=== PATIENT | male | born 1950 | race Caucasian/White ===

== ENCOUNTER 2024-03-19 11:47 | Emergency (ER) | payer MEDICARE, BC, SELFPAY ==
[2024-03-19] VITALS (28 sets, daily range): BP systolic 93–129; BP diastolic 63–98; PULSE 78–98; TEMP 36.4; O2SAT 92–99; BMI 44.4
--- NOTE | 2024-03-19 12:17 | ED_ITS ---
HPI - General Adult General Date Seen: 03/19/24 Chief complaint: Shortness of Breath/Dyspnea Stated complaint: abnormal ekg sent from Urgent care Time Seen by Provider: 03/19/24 12:13 History of Present Illness HPI narrative: 73-year-old male who is referred from the Urgent Care to the ER today he apparently had an ?abnormal EKG? at the urgent care that showed, ?blockages. ? He has no history of heart or lung disease. He is a daily marijuana smoker but has never smoked tobacco cigarettes. He has a history of gout and takes lisinopril for hypertension. He did recently have a course of cephalexin for a infection on his right finger that is now healed. He notes for the past week or 2 he has had some dyspnea with exertion in particular when he goes up steps or when he carries the trash out to the curb. He also gets short of breath when he has to follow around his grandchildren. He has had dyspnea mostly with activity and exertion. No chest pain with exertion. He also notes orthopnea and he gets short of breath when he lays down flat in bed but feels better when sitting up. He does have some trace peripheral edema but that is stable and not worse than normal lately. He does not take any diuretics. He has no history of CHF. He was noted to have a heart murmur by the urgent care today but does not recall any previous mention of heart murmur on his prior checkups. Per [facility] care link notes from the urgent care.... Jerry comes in for evaluation of dyspnea, MENJIVAR. Symptoms started 03/14 with shortness of breath with exertion. No URI symptoms- cough, rhinorrhea, coryza, congestion. No fever, chills or malaise. Patient denies any cardiac or respiratory history. No chest pain or pressure. Does have new leg swelling Med list acetaminophen SR (TYLENOL ARTHRITIS) 650 mg extended release tablet Take 1 tablet by mouth every 8 hours if needed for Pain. Max acetaminophen dose: 4000mg in 24 hrs. ? 0 ? allopurinoL (ZYLOPRIM) 100 mg tablet TAKE 4 TABLETS(400 MG) BY MOUTH EVERY DAY 120 Tablet 0 ? cephalexin 500 mg capsule Take 1 Capsule (500 mg) by mouth three times daily. (Patient not taking: Reported on 03/19/2024) 21 Capsule 0 ? colchicine 0.6 mg tablet Take 2 tabs po as soon as possible for gout flare, repeat 1 tab po 1 hour later 15 tablet. 0 ? fluticasone (50 mcg per actuation) nasal solution (FLONASE) Inhale 1 Novelty to both nostrils once daily. 16 g 0 ? lisinopriL (PRINIVIL; ZESTRIL) 20 mg tablet TAKE 1 TABLET(20 MG) BY MOUTH EVERY DAY 90 Tablet 3 ? mupirocin 2% ointment Apply topically to affected ar ea(s) three times daily. 22 g 0 ? rosuvastatin (CRESTOR) 5 mg tablet TAKE 1 TABLET(5 MG) BY MOUTH AT BEDTIME General Appearance: Pleasant, alert, appropriate appearance for age. No acute distress Chest/Respiratory Exam: Normal chest wall and respirations. Clear to auscultation. Cardiovascular Exam: Regular rate and rhythm. S1, S2, grade III/IV systolic murmur. Psychiatric Exam: Alert and oriented, appropriate affect. Discussed that patient needs to present to the ED right away for further evaluation, patient's will transport to [place] ED for further workup. I reviewed the EKG from urgent care Normal sinus rhythm with fusion complexes or PVCs Rate: 93 NE: 146 QRS axis: Normal axis. No pathologic Q-waves. ST segment/T wave: No ST segment elevation or depression. Nonspecific T-wave inversions in leads 1, 2, aVL, V4, V5, V6. QTc: 447 Related Data Allergies Allergy/AdvReac Type Severity Reaction Status Date / Time No Known Drug Allergies Allergy Verified 03/19/24 11:55 [facility] Social History Smoking Status: Current every day smoker Do you use any of these nicotine containing products: None Second hand tobacco smoke exposure: Yes How often do you have a drink containing alcohol: never How often do you have six or more drinks on one occasion: Never AUDIT-C Alcohol total score: 0 Non-prescribed substance use: marijuana (any form) Non-prescribed substance use details: smokes daily service: No Exam Narrative: Exam Narrative: Constitutional: Appears well-developed and well-nourished. Alert. Conversant. Non toxic. HENT: Head: Atraumatic. Nose: Nose normal. Mouth/Throat: Oral mucosa is clear and moist. no trismus. Pharynx normal. Tonsils symmetric. No tonsillar enlargement, erythema, or exudate. Eyes: Conjunctivae normal. EOM normal. Pupils equal, round, and reactive to light. No scleral icterus. Neck: Normal range of motion. Neck supple. No tracheal deviation present. No JVD Cardiovascular: Normal rate, regular rhythm. No gallop. No friction rub. Crescendo systolic murmur heard. Symmetric radial and DBP artery pulses Pulmonary/Chest: Effort normal. No stridor. No respiratory distress. No wheezes. No rales. No rhonchi . No tenderness. Abdominal: Soft.No distension. No mass. No tenderness. No rebound. No guarding. Musculoskeletal: RUE: Normal range of motion. No tenderness. No deformity LUE: Normal range of motion. No tenderness. No deformity RLE: Normal range of motion. No edema. No tenderness. No deformity. He has a small 1 x 4 cm scab on the dorsum of his right foot 3rd toe which apparently is been present for a few weeks it is not healed yet. No surrounding erythema. No purulent drainage. No signs of gangrene. LLE: Normal range of motion. No edema. No tenderness. No deformity Neurological: Alert and oriented to person, place, and time. Normal strength. CN II-VII intact. No sensory deficit. GCS eye subscore is 4. GCS verbal subscore is 5. GCS motor subscore is 6. Normal coordination Skin: Skin is warm and dry. No rash noted. No pallor. Normal capillary refill. Psychiatric: Normal mood. Normal affect. Very polite. Const: Vital Signs, click to edit/add: Vital Signs - 24 hr 03/19/24 11:56 03/19/24 12:02 03/19/24 12:03 Temperature 97.6 F Pulse Rate 93 90 Blood Pressure 101/82 Pulse Oximetry 96 96 Oxygen Delivery Me thod Room Air 03/19/24 12:15 03/19/24 12:30 03/19/24 12:31 Temperature Pulse Rate 90 88 Blood Pressure 93/63 Pulse Oximetry 95 97 Oxygen Delivery Me thod 03/19/24 12:32 03/19/24 12:45 03/19/24 13:06 Temperature Pulse Rate 88 91 98 Blood Pressure Pulse Oximetry 99 96 96 Oxygen Delivery Me thod 03/19/24 13:16 03/19/24 13:17 03/19/24 13:30 Temperature Pulse Rate 91 92 91 Blood Pressure 110/82 Pulse Oximetry 95 95 96 Oxygen Delivery Me thod 03/19/24 13:33 03/19/24 13:45 03/19/24 14:00 Temperature Pulse Rate 94 92 92 Blood Pressure 129/98 H Pulse Oximetry 92 96 95 Oxygen Delivery Me thod 03/19/24 14:05 03/19/24 14:06 03/19/24 15:13 Temperature Pulse Rate 96 87 92 Blood Pressure Pulse Oximetry 95 95 94 Oxygen Delivery Me thod 03/19/24 15:15 03/19/24 15:30 03/19/24 15:45 Temperature Pulse Rate 89 92 93 Blood Pressure Pulse Oximetry 95 93 94 Oxygen Delivery Me thod 03/19/24 16:00 03/19/24 16:15 03/19/24 16:30 Temperature Pulse Rate 89 90 78 Blood Pressure Pulse Oximetry 95 94 97 Oxygen Delivery Me thod Course Course ED Course: Recheck-stable. Watching football. Reevaluation(s) Reevaluation #1: [id number]. Discussed follow-up troponin with the patient and his . We discussed my concern for CHF for possible aortic stenosis causing his murmur, dyspnea on exertion, abnormal troponin. We discussed that he will need further workup with echocardiogram. Would recommend hospitalization to help expedite that. Waiting senior radiation therapist back from [facility] [place]. Vital Signs Vital signs: Initial Vital Signs Respiratory Effort Spontaneous, Short of Breath 03/19/24 11:54 Respiratory Depth Normal 03/19/24 11:54 Vital Signs Temperature 97.6 F 03/19/24 11:56 Oxygen Delivery Method Room Air 03/19/24 11:56 Temperature 97.6 F 03/19/24 11:56 Pulse Rate 78 03/19/24 16:30 Blood Pressure 129/98 H 03/19/24 13:33 Pulse Oximetry 97 03/19/24 16:30 Oxygen Delivery Method Room Air 03/19/24 11:56 Medical Decision Making MDM Narrative Medical decision making narrative: This patient presents to the ER today for evaluation of dyspnea on exertion and orthopnea that has been ongoing for the past week (per patient) or maybe even 2 weeks or so (per his family). He was for to the ER today by urgent care because of a abnormal EKG with nonspecific T-wave changes in the inferior and lateral leads.. Differential was broad. No evidence of palpitations, syncope or other cardiac dysrhythmia. We considered possible ACS, however his only symptom is dyspnea on exertion orthopnea, no chest pain. EKG shows nonspecific changes but troponin is abnormal at 0.17. 2 hour delta troponin is essentially flat at 0.18. At this point no clear evidence for acute cardiac syndrome. He has already taken aspirin throughout and 25 mg a few hours prior to arrival so we did not administer extra aspirin here. He is not having any active symptoms to require nitrates. Discussed with Cardiology, Dr. Oliver, who recommends heparin for potential ACS given the positive troponin. Patient did have a little bit of bright red blood per rectum in his stool yesterday from a small hemorrhoid but no other recent GI bleeding. I think overall the risk of heparin is low enough that we will start here in the ER. Chest x-ray shows no evidence for pneumonia, pneumothorax, pulmonary edema, pleural effusion, rib fracture, cardiomegaly per my read. There was some problem with Radiology read as initially the report came across as a result of a hand x-ray. I called through to [facility] to have them correct the report. As of the time is the patient is still not directed. Mediastinum is normal on the x-ray. The patient has no ripping or tearing pain through to the back and has symmetric pulses on exam, no other acute neuro findings so I doubt aortic dissection. Risk of radiation and contrast exposure would outweigh the benefit of CT angiogram. We considered PE for this patient. Abnormal D-dimer prompted chest CT which is negative for PE. Also negative for pneumonia, pneumothorax, pulmonary edema, pleural effusion, or other cause for dyspnea. No wheezing or bronchospasm to suggest COPD/asthma. Suspicion is with his systolic murmur that he may have a critical aortic stenosis leading to his dyspnea on exertion and his abnormal troponin. Discussed with cardiology from [facility] [place], Dr. Cruz aviles. He would recommend transfer to [place] so the patient can have an echo tomorrow and evaluation of his valve if it is truly abnormal. If the echo is normal in the patient would need angiogram to look for coronary artery disease.\ Lab Data Labs: Lab Results 03/19/24 03/19/24 03/19/24 Range/Units 12:53 13:17 15:40 WBC 10.16 (4.50-11.00) K/uL RBC 4.67 (4.30-5.90) m/uL Hgb 14.2 (13.5-17.5) gm/dL Hct 44.7 (37.0-53.0) % MCV 96 (80-100) fL MCH 30 (26-34) pg MCHC 32 (32-36) gm/dL RDW Coeff of Mya 14.5 (11.5-15.5) % Plt Count 200 (140-440) K/uL Neut % (Auto) 54.5 (42.0-72.0) % Lymph % (Auto) 27.7 (20-44) % [place] % (Auto) 12.7 H (0.0-11.0) % Eos % (Auto) 4.0 (0.0-7.0) % Baso % (Auto) 0.9 (0.0-3.0) % Neut # (Auto) 5.54 (1.7-7.0) K/uL Lymph # (Auto) 2.81 (0.90-2.90) K/uL [place] # (Auto) 1.30 H (0.00-0.90) K/UL Eos # (Auto) 0.41 (0.00-0.50) K/uL Baso # (Auto) 0.09 (0.00-0.30) K/uL Abs Immat Gran (auto) 0.02 (0.00-0.30) K/uL Imm/Tot Granulo (auto) 0.2 % D-Dimer Quant (PE/DVT) 1.44 H (0.00-0.50) ug/ml Sodium 137 (135-149) mmol/L Potassium 4.6 (3.6-5.1) mmol/L Chloride 105 (96-114) mmol/L Carbon Dioxide 25 (20-32) mmol/L Anion Gap 7 (7-15) mEq/L BUN 20 (7-30) mg/dL Creatinine 1.2 (0.5-1.5) mg/dL Estimated Creat Clear 50.21 Estimated GFR 64 ml/min Glucose 105 (60-115) mg/dL Calcium 9.1 (8.4-10.6) mg/dL Troponin I 0.17 H* 0.18 H* (0.01-0.04) ng/mL NT-Pro-B Natriuret Pep 3620 pg/mL SARS-CoV-2 (PCR) Negative SARS-CoV-2 (Negative) Influenza Type A (PCR) Negative PCR FLU A (Negative) Influenza Type B (PCR) Negative PCR FLU B (Negative) RSV (PCR) Negative PCR RSV (Negative) Imaging Data CT scan - chest: Attestation: I have reviewed the pertinent imaging results. Radiologist's impression: IMPRESSION: No pulmonary embolism identified. Mild bronchial wall thickening especially centrally from maybe related to viral infection or other airways disease. Otherwise no acute cardiopulmonary process identified. Mild cardiomegaly. Discharge Plan Discharge Clinical Impression: Non-ST elevation [place] (NSTEMI), CHF (congestive heart failure) Patient Disposition: [facility]
--- NOTE | 2024-03-19 12:43 | CRLHL7_ITS ---
For Patients: As a result of the Cures Act, medical imaging exams and procedure reports are released immediately into your electronic medical record. You may view this report before your referring provider. If you have questions, please contact your health care provider. INDICATION: Smashed hand in door TECHNIQUE: Three views right hand FINDINGS/IMPRESSION: Normal alignment. No acute fracture or acute osseous abnormalities are visualized. Dictated by Cecile Brady MD @ 03/19/2024 1:57:03 PM (Electronically Signed)
[2024-03-19 13:02] LABS: Basophils Absolute Auto 0.09 K/uL (0.00-0.30); Basophils Percent Auto 0.9 % (0.0-3.0); Eosinophils Absolute Auto 0.41 K/uL (0.00-0.50); Hematocrit 44.7 % (37.0-53.0); Hemoglobin* 14.2 gm/dL (13.5-17.5); Immature Granulocytes Abs Auto 0.02 K/uL (0.00-0.30); Immature Granulocytes Pct Auto 0.2 %; Lymphocytes Absolute Auto 2.81 K/uL (0.90-2.90); Lymphocytes Percent Auto 27.7 % (20-44); Mean Corpuscular HGB Conc 32 gm/dL (32-36); Mean Corpuscular Hemoglobin 30 pg (26-34); Mean Corpuscular Volume 96 fL (80-100); Monocytes Percent Auto 12.7 % (0.0-11.0); Neutrophils Absolute Auto 5.54 K/uL (1.7-7.0); Neutrophils Percent Auto 54.5 % (42.0-72.0); Platelet Count* 200 K/uL (140-440); RDW Coefficient of Variation % 14.5 % (11.5-15.5); Red Blood Count 4.67 m/uL (4.30-5.90); White Blood Count* 10.16 K/uL (4.50-11.00)
[2024-03-19 13:09] LABS: Slide Review Reflex No
[2024-03-19 13:28] LABS: Chloride* 105 mmol/L (96-114); Potassium* 4.6 mmol/L (3.6-5.1); Sodium* 137 mmol/L (135-149)
[2024-03-19 13:30] LABS: Creatinine* 1.2 mg/dL (0.5-1.5); Est. Creatinine Clearance* 50.21; Estimated Glomerular Filt Rate 64 ml/min
[2024-03-19 13:31] LABS: Anion Gap 7 mEq/L (7-15); Blood Urea Nitrogen* 20 mg/dL (7-30); Calcium* 9.1 mg/dL (8.4-10.6); Carbon Dioxide* 25 mmol/L (20-32); Glucose* 105 mg/dL (60-115)
[2024-03-19 13:32] LABS: D Dimer Quantitative* 1.44 ug/ml (0.00-0.50)
[2024-03-19 13:42] LABS: NT Pro B Type NatriureticPept* 3620 pg/mL
[2024-03-19 13:45] LABS: Troponin I* 0.17 ng/mL (0.01-0.04)
[2024-03-19 14:04] LABS: PCR FLU A Negative PCR FLU A (Negative); PCR FLU B Negative PCR FLU B (Negative); PCR RSV Negative PCR RSV (Negative); SARS PCR* Negative SARS-CoV-2 (Negative)
--- NOTE | 2024-03-19 14:04 | CRLHL7_ITS ---
For Patients: As a result of the Century Cures Act, medical imaging exams and procedure reports are released immediately into your electronic medical record. You may view this report before your referring provider. If you have questions, please contact your health care provider. INDICATION: dyspnea, abnl D Dimer. TECHNIQUE: CT chest PE was acquired with 95 cc Isovue 370 IV contrast. COMPARISON: None. FINDINGS: Heart and vasculature: Contrast opacification of the pulmonary arterial tree is adequate. No sign of pulmonary embolism. Heart size is mildly enlarged. Coronary artery calcifications. Ascending aorta is borderline enlarged. Pulmonary artery are normal in caliber. Lungs and pleura: Mild central bronchial wall thickening. No pleural effusions, pleural thickening, or pneumothorax. Lymph nodes/mediastinum: No mediastinal, hilar, or axillary adenopathy. Chest wall: No masses. Upper abdomen: No acute or significant findings. Possible cirrhotic morphology of the liver. Bones: Unremarkable for age. IMPRESSION: No pulmonary embolism identified. Mild bronchial wall thickening especially centrally from maybe related to viral infection or other airways disease. Otherwise no acute cardiopulmonary process identified. Mild cardiomegaly. Please note that all CT scans at this facility use dose modulation, iterative reconstruction, and/or weight-based dosing when appropriate to reduce radiation dose to as low as reasonably achievable. Dictated by Mick Zuniga MD @ 03/19/2024 4:32:25 PM (Electronically Signed)
[2024-03-19 16:35] LABS: Troponin I* 0.18 ng/mL (0.01-0.04)
[2024-03-19] MEDS: HEPARIN 5,000 UNIT/0.5 ML INJ 4000 UNIT IVP (18:02)
[2024-03-19] MEDS: HEPARIN 25,000 UNIT/500 ML BAG 20 UNIT IV (18:03)
[2024-03-19 18:34] LABS: INR 1.02 (0.91-1.10)
[2024-03-19 18:35] LABS: Partial Thromboplastin Time* 40 Seconds (23-33)
== END 2024-03-19 19:16 | disposition short-term general hospital (02) ==
PROVIDERS: Emergency Provider Emergency Medicine; PCP Surgery
DX: I21.4 Non-ST elevation (NSTEMI) myocardial infarction (principal); I50.9 Heart failure, unspecified
CPT/HCPCS: 36415; 71046; 71275; 80048; 83880; 84484; 85025; 85379; 85610; 85730; 87631; 93005; 96374; 99284; 99285; J1644; Q9967

== ENCOUNTER 2024-03-19 19:04 | Outpatient (CLI) | payer MEDICARE, BC, SELFPAY | END 2024-03-19 19:05 | disposition home or self-care (01) | LOC: AMB 03-21 14:39 | PROVIDERS: PCP Surgery; Visit Provider Emergency Medicine Emergency Medical Services | DX: I21.4 Non-ST elevation (NSTEMI) myocardial infarction (principal); I50.9 Heart failure, unspecified; R53.1 Weakness | CPT/HCPCS: A0425; A0434 ==

== ENCOUNTER 2024-10-04 18:54 | Emergency (ER) | payer MEDICARE, BC, SELFPAY ==
--- OUTSIDE RECORDS SUMMARY | 2024-08-23 09:29 | XMS_ITS | Encounter Summary ---
Author Organization [facility] Address [address] [place] [address] Care Team Providers Care Submarine Diver Name Role Phone Unavailable Primary Care Provider Unavailabl e Reason for Referral * Outpatient (Routine) - Authorized Specialty Diagnoses / Procedures Referred By Carmella bellamy Referred To Contact Diagnoses Repair Aortic Valve Status Post Procedures Cardiac Rehab Program Leo Clay M.D. [address] [place] [phone] Phone: tel: fax: [facility] Referral ID Status Reason Start Date Expiration Date V isits Requested Visits Authorized [id number] Authorized 06/20/2024 09/20/2025 50 50 Reason for Visit * Outpatient (Routine) - Authorized Specialty Diagnoses / Procedures Referred By Carmella bellamy Referred To Contact Diagnoses Repair Aortic Valve Status Post Procedures Cardiac Rehab Program Leo Clay M.D. [address] [place] [phone] Phone: tel: fax: [facility] Region Referral ID Status Reason Start Date Expiration Date V isits Requested Visits Authorized [id number] Authorized 06/20/2024 09/20/2025 50 50 Encounter Details Date Type Department Care Team (Latest Contact Info) Description 08/23/2024 9:29 AM CDT - 08/23/2024 11:59 PM CDT Hospital Encounter Department of Cardiac Rehabilitation in [address] [place] [address] Leo Clay M.D. 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
--- OUTSIDE RECORDS SUMMARY | 2024-08-28 09:28 | XMS_ITS | Encounter Summary ---
Author Organization [facility] Address [address] [place] [address] Care Team Providers Care Petroleum Sampler Name Role Phone Unavailable Primary Care Provider Unavailabl e Reason for Referral * Outpatient (Routine) - Authorized Specialty Diagnoses / Procedures Referred By Carmella bellamy Referred To Contact Diagnoses Repair Aortic Valve Status Post Procedures Cardiac Rehab Program Leo Clay M.D. [address] [place] [phone] Phone: tel: fax: [facility] Referral ID Status Reason Start Date Expiration Date V isits Requested Visits Authorized [id number] Authorized 06/20/2024 09/20/2025 50 50 Reason for Visit * Outpatient (Routine) - Authorized Specialty Diagnoses / Procedures Referred By Carmella bellamy Referred To Contact Diagnoses Repair Aortic Valve Status Post Procedures Cardiac Rehab Program Leo Clay M.D. [address] [place] [phone] Phone: tel: fax: [facility] Region Referral ID Status Reason Start Date Expiration Date V isits Requested Visits Authorized [id number] Authorized 06/20/2024 09/20/2025 50 50 Encounter Details Date Type Department Care Team (Latest Contact Info) Description 08/28/2024 9:28 AM CDT - 08/28/2024 11:59 PM CDT Hospital Encounter Department of Cardiac Rehabilitation in [address] [place] [phone] Leo Clay M.D. 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
--- OUTSIDE RECORDS SUMMARY | 2024-08-30 09:28 | XMS_ITS | Encounter Summary ---
Author Organization [facility] Address [address] [place] [address] Care Team Providers Care Electrical Appliance Servicer Name Role Phone Unavailable Primary Care Provider Unavailabl e Reason for Referral * Outpatient (Routine) - Authorized Specialty Diagnoses / Procedures Referred By Carmella bellamy Referred To Contact Diagnoses Repair Aortic Valve Status Post Procedures Cardiac Rehab Program Leo Clay M.D. [address] [place] [phone] Phone: tel: fax: [facility] Referral ID Status Reason Start Date Expiration Date V isits Requested Visits Authorized [id number] Authorized 06/20/2024 09/20/2025 50 50 Reason for Visit * Outpatient (Routine) - Authorized Specialty Diagnoses / Procedures Referred By Carmella bellamy Referred To Contact Diagnoses Repair Aortic Valve Status Post Procedures Cardiac Rehab Program Leo Clay M.D. [address] [place] [phone] Phone: tel: fax: [facility] Region Referral ID Status Reason Start Date Expiration Date V isits Requested Visits Authorized [id number] Authorized 06/20/2024 09/20/2025 50 50 Encounter Details Date Type Department Care Team (Latest Contact Info) Description 08/30/2024 9:28 AM CDT - 08/30/2024 11:59 PM CDT Hospital Encounter Department of Cardiac Rehabilitation in [address] [place] [address] Leo Clay M.D. 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
--- OUTSIDE RECORDS SUMMARY | 2024-09-01 09:29 | XMS_ITS | Encounter Summary ---
Author Organization [facility] Address [address] [place] [address] Care Team Providers Care Wind Power Project Manager Name Role Phone Unavailable Primary Care Provider Unavailabl e Reason for Referral * Outpatient (Routine) - Authorized Specialty Diagnoses / Procedures Referred By Carmella bellamy Referred To Contact Diagnoses Repair Aortic Valve Status Post Procedures Cardiac Rehab Program Leo Clay M.D. [address] [place] [phone] Phone: tel: fax: [facility] Referral ID Status Reason Start Date Expiration Date V isits Requested Visits Authorized [id number] Authorized 06/20/2024 09/20/2025 50 50 Reason for Visit * Outpatient (Routine) - Authorized Specialty Diagnoses / Procedures Referred By Carmella bellamy Referred To Contact Diagnoses Repair Aortic Valve Status Post Procedures Cardiac Rehab Program Leo Clay M.D. [address] [place] [phone] Phone: tel: fax: [facility] Region Referral ID Status Reason Start Date Expiration Date V isits Requested Visits Authorized [id number] Authorized 06/20/2024 09/20/2025 50 50 Encounter Details Date Type Department Care Team (Latest Contact Info) Description 09/01/2024 9:29 AM CDT - 09/01/2024 11:59 PM CDT Hospital Encounter Department of Cardiac Rehabilitation in [address] [place] [address] Leo Clay M.D. 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
--- OUTSIDE RECORDS SUMMARY | 2024-09-04 09:28 | XMS_ITS | Encounter Summary ---
Author Organization [facility] Address [address] [place] [address] Care Team Providers Care Credentialer Name Role Phone Unavailable Primary Care Provider Unavailabl e Reason for Referral * Outpatient (Routine) - Authorized Specialty Diagnoses / Procedures Referred By Carmella bellamy Referred To Contact Diagnoses Repair Aortic Valve Status Post Procedures Cardiac Rehab Program Leo Clay M.D. [address] [place] [phone] Phone: tel: fax: [facility] Referral ID Status Reason Start Date Expiration Date V isits Requested Visits Authorized [id number] Authorized 06/20/2024 09/20/2025 50 50 Reason for Visit * Outpatient (Routine) - Authorized Specialty Diagnoses / Procedures Referred By Carmella bellamy Referred To Contact Diagnoses Repair Aortic Valve Status Post Procedures Cardiac Rehab Program Leo Clay M.D. [address] [place] [phone] Phone: tel: fax: [facility] Region Referral ID Status Reason Start Date Expiration Date V isits Requested Visits Authorized [id number] Authorized 06/20/2024 09/20/2025 50 50 Encounter Details Date Type Department Care Team (Latest Contact Info) Description 09/04/2024 9:28 AM CDT - 09/04/2024 11:59 PM CDT Hospital Encounter Department of Cardiac Rehabilitation in [address] [place] [address] Leo Clay M.D. 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
--- OUTSIDE RECORDS SUMMARY | 2024-09-11 09:27 | XMS_ITS | Encounter Summary ---
Author Organization [facility] Address [address] [place] [address] Care Team Providers Care Assistant Banquet Manager Name Role Phone Unavailable Primary Care Provider Unavailabl e Reason for Referral * Outpatient (Routine) - Authorized Specialty Diagnoses / Procedures Referred By Carmella bellamy Referred To Contact Diagnoses Repair Aortic Valve Status Post Procedures Cardiac Rehab Program Leo Clay M.D. [address] [place] [phone] Phone: tel: fax: [facility] Referral ID Status Reason Start Date Expiration Date V isits Requested Visits Authorized [id number] Authorized 06/20/2024 09/20/2025 50 50 Reason for Visit * Outpatient (Routine) - Authorized Specialty Diagnoses / Procedures Referred By Carmella bellamy Referred To Contact Diagnoses Repair Aortic Valve Status Post Procedures Cardiac Rehab Program Leo Clay M.D. [address] [place] [phone] Phone: tel: fax: [facility] Region Referral ID Status Reason Start Date Expiration Date V isits Requested Visits Authorized [id number] Authorized 06/20/2024 09/20/2025 50 50 Encounter Details Date Type Department Care Team (Latest Contact Info) Description 09/11/2024 9:27 AM CDT - 09/11/2024 11:59 PM CDT Hospital Encounter Department of Cardiac Rehabilitation in [address] [place] [address] Leo Clay M.D. 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
--- OUTSIDE RECORDS SUMMARY | 2024-09-13 09:29 | XMS_ITS | Encounter Summary ---
Author Organization [facility] Address [address] [place] [address] Care Team Providers Care Carving Machine Operator Name Role Phone Unavailable Primary Care Provider Unavailabl e Reason for Referral * Outpatient (Routine) - Authorized Specialty Diagnoses / Procedures Referred By Carmella bellamy Referred To Contact Diagnoses Repair Aortic Valve Status Post Procedures Cardiac Rehab Program Leo Clay M.D. [address] [place] [phone] Phone: tel: fax: [facility] Referral ID Status Reason Start Date Expiration Date V isits Requested Visits Authorized [id number] Authorized 06/20/2024 09/20/2025 50 50 Reason for Visit * Outpatient (Routine) - Authorized Specialty Diagnoses / Procedures Referred By Carmella bellamy Referred To Contact Diagnoses Repair Aortic Valve Status Post Procedures Cardiac Rehab Program Leo Clay M.D. [address] [place] [phone] Phone: tel: fax: [facility] Region Referral ID Status Reason Start Date Expiration Date V isits Requested Visits Authorized [id number] Authorized 06/20/2024 09/20/2025 50 50 Encounter Details Date Type Department Care Team (Latest Contact Info) Description 09/13/2024 9:29 AM CDT - 09/13/2024 11:59 PM CDT Hospital Encounter Department of Cardiac Rehabilitation in [address] [place] [address] Leo Clay M.D. 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
--- OUTSIDE RECORDS SUMMARY | 2024-09-15 09:26 | XMS_ITS | Encounter Summary ---
Author Organization [facility] Address [address] [place] [address] Care Team Providers Care Pre Sales Network Engineer Name Role Phone Unavailable Primary Care Provider Unavailabl e Reason for Referral * Outpatient (Routine) - Authorized Specialty Diagnoses / Procedures Referred By Carmella bellamy Referred To Contact Diagnoses Repair Aortic Valve Status Post Procedures Cardiac Rehab Program Leo Clay M.D. [address] [place] [phone] Phone: tel: fax: [facility] Referral ID Status Reason Start Date Expiration Date V isits Requested Visits Authorized [id number] Authorized 06/20/2024 09/20/2025 50 50 Reason for Visit * Outpatient (Routine) - Authorized Specialty Diagnoses / Procedures Referred By Carmella bellamy Referred To Contact Diagnoses Repair Aortic Valve Status Post Procedures Cardiac Rehab Program Leo Clay M.D. [address] [place] [phone] Phone: tel: fax: [facility] Region Referral ID Status Reason Start Date Expiration Date V isits Requested Visits Authorized [id number] Authorized 06/20/2024 09/20/2025 50 50 Encounter Details Date Type Department Care Team (Latest Contact Info) Description 09/15/2024 9:26 AM CDT - 09/15/2024 11:59 PM CDT Hospital Encounter Department of Cardiac Rehabilitation in [address] [place] [place] [address] Leo Clay M.D. 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
--- OUTSIDE RECORDS SUMMARY | 2024-09-18 09:30 | XMS_ITS | Encounter Summary ---
Author Organization [facility] Address [address] [place] [address] Care Team Providers Care Silk Screen Frame Assembler Name Role Phone Unavailable Primary Care Provider Unavailabl e Reason for Referral * Outpatient (Routine) - Authorized Specialty Diagnoses / Procedures Referred By Carmella bellamy Referred To Contact Diagnoses Repair Aortic Valve Status Post Procedures Cardiac Rehab Program Leo Clay M.D. [address] [place] [phone] Phone: tel: fax: [facility] Referral ID Status Reason Start Date Expiration Date V isits Requested Visits Authorized [id number] Authorized 06/20/2024 09/20/2025 50 50 Reason for Visit * Outpatient (Routine) - Authorized Specialty Diagnoses / Procedures Referred By Carmella bellamy Referred To Contact Diagnoses Repair Aortic Valve Status Post Procedures Cardiac Rehab Program Leo Clay M.D. [address] [place] [phone] Phone: tel: fax: [facility] Region Referral ID Status Reason Start Date Expiration Date V isits Requested Visits Authorized [id number] Authorized 06/20/2024 09/20/2025 50 50 Encounter Details Date Type Department Care Team (Latest Contact Info) Description 09/18/2024 9:30 AM CDT - 09/18/2024 11:59 PM CDT Hospital Encounter Department of Cardiac Rehabilitation in [address] [place] [address] Leo Clay M.D. 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
--- OUTSIDE RECORDS SUMMARY | 2024-09-20 09:26 | XMS_ITS | Encounter Summary ---
Author Organization [facility] Address [address] [place] [address] Care Team Providers Care Dianetic Counselor Name Role Phone Unavailable Primary Care Provider Unavailabl e Reason for Referral * Outpatient (Routine) - Authorized Specialty Diagnoses / Procedures Referred By Carmella bellamy Referred To Contact Diagnoses Repair Aortic Valve Status Post Procedures Cardiac Rehab Program Leo lCay M.D. [address] [place] [phone] Phone: tel: fax: [facility] Referral ID Status Reason Start Date Expiration Date V isits Requested Visits Authorized [id number] Authorized 06/20/2024 09/20/2025 50 50 Reason for Visit * Outpatient (Routine) - Authorized Specialty Diagnoses / Procedures Referred By Carmella bellamy Referred To Contact Diagnoses Repair Aortic Valve Status Post Procedures Cardiac Rehab Program Leo Clay M.D. [address] [place] [phone] Phone: tel: fax: [facility] Region Referral ID Status Reason Start Date Expiration Date V isits Requested Visits Authorized [id number] Authorized 06/20/2024 09/20/2025 50 50 Encounter Details Date Type Department Care Team (Latest Contact Info) Description 09/20/2024 9:26 AM CDT - 09/20/2024 11:59 PM CDT Hospital Encounter Department of Cardiac Rehabilitation in [address] [place] [address] Leo Clay M.D. 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
--- OUTSIDE RECORDS SUMMARY | 2024-09-27 09:30 | XMS_ITS | Encounter Summary ---
Author Organization [facility] Address [address] [place] [address] Care Team Providers Care Flight Test Data Acquisition Technician Name Role Phone Unavailable Primary Care Provider Unavailabl e Reason for Referral * Outpatient (Routine) - Authorized Specialty Diagnoses / Procedures Referred By Carmella bellamy Referred To Contact Diagnoses Repair Aortic Valve Status Post Procedures Cardiac Rehab Program Leo Clay M.D. [address] [place] [phone] Phone: tel: fax: [facility] Referral ID Status Reason Start Date Expiration Date V isits Requested Visits Authorized [id number] Authorized 06/20/2024 09/20/2025 50 50 Reason for Visit * Outpatient (Routine) - Authorized Specialty Diagnoses / Procedures Referred By Carmella bellamy Referred To Contact Diagnoses Repair Aortic Valve Status Post Procedures Cardiac Rehab Program Leo Clay M.D. [address] [place] [phone] Phone: tel: fax: [facility] Region Referral ID Status Reason Start Date Expiration Date V isits Requested Visits Authorized [id number] Authorized 06/20/2024 09/20/2025 50 50 Encounter Details Date Type Department Care Team (Latest Contact Info) Description 09/27/2024 9:30 AM CDT - 09/27/2024 11:59 PM CDT Hospital Encounter Department of Cardiac Rehabilitation in [address] [place] [address] Leo Clay M.D. 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 Were medications taken in the last 24 hours?: yes PRE WALK Assistive Device: None Height (cm): 168 Weight (kg): 116 BMI: 41.1 Resting Heart Rate: 74 Heart Rate Source: Telemetry Resp Rate: Resting SpO2: 97 Resting BP: 114/68Supplemental Oxygen used: Supplemental Oxygen Not Used Ean Dyspnea: 0 - Nothing at all Ean Fatigue: 0 - Nothing at all POST WALK Heart Rate: 120 Heart Rate Source: Telemetry SpO2: 96 BP: 162/64 Pain Score: 2-3/10 back pain Angina Scale: 0 - No Angina Claudication Scale: 1 - No Claudication Pain Ean Dyspnea: 2 - Slight Ean Fatigue: 2 - Slight Ean Rating of Perceived Exertion: 12 - Moderate Time of Test: 09:30 CDT Total Distance Walked (Feet): 1300 Total Distance Walked (Meters): 396.24 Total # of Times Stopped: 0 Time Stopped (Seconds): 0 Time Walked (Seconds): 360 CALCULATIONS Estimated MPH: 2.5 Estimated METs: 2.92 % of Predicted Distance: 98.37 documented in this encounter Miscellaneous Notes * Exercise Prescription - Merlene Weinberg CCRP, CEP - 09/27/2024 7:34 AM CDT EXERCISE PRESCRIPTION: Frequency Frequency of Sessions: Weekly Sessions per week: 3-5 Intensity Intensity: Work at a level that is comfortable but also challenging Rating of Perceived Exertion range (RPE): 11-15 Time Warm Up Minutes: 2-3 Aerobic exercise minutes: 30-45 Cool Down minutes: 2-3 Goal Minutes/session: 30+ Goal Minutes/Week: 150+ Type Rehab Aerobic Exercise Equipment: Treadmill; Arm Ergometer; Recumbent stepper (with or without arms); Walking Non-Rehab Aerobic Exercise Equipment: Walking Flexibility and Balance: Stretch major muscle groups daily Strength Training: Toribioisttawanna Number of strength sessions per week: 2-3 Reps: 10-15 Sets: 1-2 Hobbies/Activities: Avoid prolonged sitting Progression Progression: Use RPE to guide when to increase work level intensity and duration; Follow/match rehab intensity Congratulations, Rich! It has been a pleasure working with you. I am proud of the progress you havemade and I hope you are too. I hope you continue to see the importance and benefit of exercise and try to incorporate it into your daily life. Please do not hesitate to reach out if you have questions down the road. Elvira Ren Cardiac Rehab Therapist [phone] documented in this encounter Plan of Treatment Scheduled Orders Name Type Priority Associated Diagnoses Orde r Schedule Cardiac Rehab Program Card Rehab Routine Repair Aortic Valve Status Post Once for 1 Occurrences starting 09/27/2024 until 09/27/2024 documented as of this encounter Procedures Procedure Name Priority Date/Time Associated Diagnosis Comments 6 MINUTE WALK Routine 09/27/2024 9:30 AM CDT Repair Aortic Valve Status Post documented in this encounter Results * 6 MINUTE WALK (09/27/2024 9:30 AM CDT) Narrative Merlene Weinberg CCRP, CEP - 09/27/2024 9:30 AM CDT Merlene Weinberg CCRP, CEP 10/03/2024 9:01 AM Six Minute Walk Performed by: Merlene Weinberg CCRP, CEP Authorized by: Leo Clay M.D. Were medications taken in the last 24 hours?: yes PRE WALK Assistive Device: None Height (cm): 168 Weight (kg): 116 BMI: 41.1 Resting Heart Rate: 74 Heart Rate Source: Telemetry Resp Rate: Resting SpO2: 97 Resting BP: 114/68Supplemental Oxygen used: Supplemental Oxygen Not Used Ean Dyspnea: 0 - Nothing at all Ean Fatigue: 0 - Nothing at all POST WALK Heart Rate: 120 Heart Rate Source: Telemetry SpO2: 96 BP: 162/64 Pain Score: 2-3/10 back pain Angina Scale: 0 - No Angina Claudication Scale: 1 - No Claudication Pain Ean Dyspnea: 2 - Slight Ean Fatigue: 2 - Slight Ean Rating of Perceived Exertion: 12 - Moderate Time of Test: 09:30 CDT Total Distance Walked (Feet): 1300 Total Distance Walked (Meters): 396.24 Total # of Times Stopped: 0 Time Stopped (Seconds): 0 Time Walked (Seconds): 360 CALCULATIONS Estimated MPH: 2.5 Estimated METs: 2.92 % of Predicted Distance: 98.37 us Leo Clay M.D. CV STRESS PROCEDURES Final Result documented in this encounter Visit Diagnoses Diagnosis Repair Aortic Valve Status Post documented in this encounter Additional Health Concerns Assessment Noted Time PHQ-9 Depression Total Score: 2 09/28/19 25 12:20 PM CDT documented as of this encounter
--- OUTSIDE RECORDS SUMMARY | 2024-10-04 18:55 | XMS_ITS | Encounter Summary ---
Author Organization [facility] Address [address] [place] [address] Care Team Providers Care Music Pastor Name Role Phone Unavailable Primary Care Provider Unavailabl e Reason for Visit * Reason Onset Date Comments Scheduling 09/06/2024 Encounter Details Date Type Department Care Team (Late st Contact Info) Description 09/06/2024 Clinical Communication Department of Cardiac Rehabilitation in [address] [place] [id number] Merlene Weinberg, CCRP, [facility] [place] Scheduling Social History Tobacco Use Types Packs/Day Years Used Date Smoking Tobacco: Never Assessed Depression Answer Date Recor ded PHQ-9 Total Score (max 27) 3 06/29 Sex and Gender Information Value Date Recorded Sex Assigned at Not on file Legal Sex Male 10:26 AM [employer] DIRECT[employer] Gender Identity Not on file Sexual Orientation Not on file documented as of this encounter Plan of Treatment Not on file documented as of this encounter Visit Diagnoses Not on filedocumented in this encounter Additional Health Concerns Assessment Noted Time PHQ-9 Depression Total Score: 3 06/30/19 25 11:05 AM CDT documented as of this encounter
--- OUTSIDE RECORDS SUMMARY | 2024-10-04 18:56 | XMS_ITS | Clinical Summary ---
Author Organization [employer] [facility] Address [address] [place] [id number] Care Team Providers Care In Processing Instructor Name Role Phone Joey Jackson MD Primary Care Provider [phone] Nurses, Advanced Heart Failure Unavailable + Nicho Keys MD Unavailable [phone] Allergies Active Allergy Reactions Criticality Noted Date Comments Blood-Group Specific Substance Other - Describe In Comment Field 06/01/2024 Patient has a Nonspecifc antibody. Blood products may be delayed. Draw patient 24 hours prior to transfusion. For [employer] testing, draw one red top and two purple top tubes for all Type and Screen orders. Medications acetaminophen SR (TYLENOL ARTHRITIS) 650 mg extended release tablet Take 1 tablet by mouth every 8 hours if needed for Pain. Max acetaminophen dose: 4000mg in 24 hrs. 0 10/23/19 12 Active colchicine 0.6 mg tabletIndication s:Acute gout involving toe, unspecified cause, unspecified laterality Take 2 tabs po as soon as possible for gout flare, repeat 1 tab po 1 hour later 15 tablet. 08/05/19 22 Active allopurinoL (ZYLOPRIM) 100 mg tabletIndication s:Acute gout involving toe, unspecified cause, unspecified laterality TAKE 4 TABLETS(400 MG) BY MOUTH EVERY DAY 360 Tablet 2 03/20/20 24 Active fluticasone (50 mcg per actuation) nasal solution (FLONASE) Inhale 1 [place] into affected nostril(s) once daily if needed for Rhinitis. Active furosemide (LASIX) 20 mg tabletIndication s:Acute HFrEF (heart failure with reduced ejection fraction) (HC),Severe aortic stenosis Take 1 Tablet (20 mg) by mouth once daily if needed (Fluid retention). 04/24/19 25 Active clopidogreL (PLAVIX) 75 mg tabletIndication s:Coronary artery disease, unspecified vessel or lesion type, unspecified whether angina present, unspecified whether [place] or transplanted heart Take 1 Tablet (75 mg) by mouth once daily. 90 Tablet 1 04/25/19 25 Active rosuvastatin 20 mg tabletIndication s:Coronary artery disease, unspecified vessel or lesion type, unspecified whether angina present, unspecified whether [place] or transplanted heart Take 1 Tablet (20 mg) by mouth once daily. 90 Tablet 3 06/17/19 25 Active spironolactone 25 mg tabletIndication s:Systolic heart failure, unspecified HF chronicity (HC) Take 0.5 Tablets (12.5 mg) by mouth once daily in the morning. 45 Tablet 3 06/17/19 25 Active empagliflozin 10 mg tabletIndication s:Systolic heart failure, unspecified HF chronicity (HC) Take 1 Tablet (10 mg) by mouth once daily. 90 Tablet 3 07/05/19 25 Active aspirin 81 mg enteric coated tabletIndication s:HFrEF (heart failure with reduced ejection fraction) (HC) Take 1 Tablet (81 mg) by mouth once daily with a meal. 90 Tablet 3 07/21/19 25 Active valsartan 160 mg tabletIndication s:HFrEF (heart failure with reduced ejection fraction) (HC) Take 1 Tablet (160 mg) by mouth two times daily. 180 Tablet 1 08/15/19 25 Active metoprolol succinate 50 mg sustained-releas e tabletIndication s:HFrEF (heart failure with reduced ejection fraction) (HC) Take 1 Tablet (50 mg) by mouth two times daily. 180 Tablet 3 09/26/19 25 Active metoprolol succinate 50 mg sustained-releas e tabletIndication s:HFrEF (heart failure with reduced ejection fraction) (HC) Take 1/2 tablet in the morning and 1 tablet in the evening 135 Tablet 3 09/01/19 25 025 Discontin ued(*Medi cation adjustmen t) Active Problems Problem Noted Date Diagnosed Date Hypertensive heart and chron ic kidney disease with heart failure and stage 1 through stage 4 chronic kidney disease, or unspecified chronic kidney disease 03/30/2024 Body mass index (BMI) 40.0-44.9, adult Non-ST elevation [place] (NSTEMI) 03/19/2024 Acute HFrEF (heart failure with reduced ejection fraction) 03/19/2024 Severe aortic stenosis 03/19/2024 Chronic low back pain 03/19/2024 NIKKI 08/25/2017 AHI-49 09/09/2017 Polyarticular arthritis 07/31/2017 Spinal stenosis of lumbar re gion with neurogenic claudication 06/28/2017 Overview (06/28/2017): Right leg symptoms MRI: 06/24/17 IMPRESSION: Straightening of the lumbar spine, grade 1 anterolisthesis at L5-S1 and severe multilevel degenerative disc disease, which in combination with congenitally short pedicles results in severe multilevel central canal stenosis accompanied by moderate to severe neural foraminal stenoses as detailed above. To surgeon Acute gout involving toe 06/08/2015 Colon polyp 10/30/2011 Overview (08/14/2021): Colonoscopy 10/2011 polyp repeat in 5 years Colonoscopy 08/2017 multiple polyps, repeat in 3 years Colonoscopy 07/2021 large SSA, repeat in 3 years Mixed hyperlipidemia 10/28/2011 Obesity, unspecified 10/23/2011 Hypertension 09/15/2011 Resolved Problems Problem Noted Date Diagnosed Date Resolved Date CHF (congestive heart failure) 03/30/2024 03/31/2024 Body mass index (BMI) of 40.0-44.9 in adult 07/05/2018 11/20/2022 Encounters Date Type Department Care Team Description 09/25/2024 10:00 AM CDT Office Visit [facility] [address] [facility] [address] [place] [address] Qi Vidal, SOL CV Heart Failure Est (2 Mo F/U; Labs done 09/22; Pt states that he has been feeling good. Weight has been stable and sleeping well) 09/24/2024 Travel 09/22/2024 9:15 AM CDT Orders Only [facility] [address] [place] [address] Lab, [place] Lab 09/22/2024 Travel 09/01/2024 Telephone [facility] [address] [place] [address] Qi Vidal CNS Results (BMP, Pro-BNP) 08/30/2024 Telephone [facility] [address] [place] [address] Qi Vidal CNS 08/29/2024 12:45 PM CDT Orders Only [facility] [address] [facility] [place] [address] Lab, Yesika Lab 08/29/2024 Travel 08/25/2024 Travel 08/14/2024 10:00 AM CDT Office Visit [facility] [address] [facility] [address] [place] [address] Qi Vidal CNS Follow Up (CHF 1 MO FOLLOW UP/LABS PRIOR AT [facility] / states feeling good. no cardiac symptoms today. He occ gets shaky when he tries to do little things. Other than that, he feels a lot better.) 08/14/2024 Travel 08/11/2024 9:50 AM CDT Orders Only [facility] [address] [place] [phone] Lab, Appv Lab 08/11/2024 Travel 08/07/2024 Travel 08/02/2024 Telephone [facility] [address] [place] [address] Gregory Espinosa MD 07/20/2024 3:30 PM CDT Office Visit [facility] [address] [place] [address] Nicho Keys MD CV Heart Failure Est (Appointment Note//6-8 WK POST HOSPT F/U---AFTER TAVR/LABS DONE PRIOR//) 07/20/2024 2:30 PM CDT Orders Only [facility] [address] [place] [address] Lab 07/20/2024 Telephone [facility] [address] [place] [phone] Nicho Keys MD Cardiology Appointment 07/20/2024 Travel 07/15/2024 Travel 07/14/2024 3:00 PM CDT Office Visit [facility] [address] [facility] [address] [place] [phone] Jethro Marina MD CV Valve Est (NPERSON:VALVE EST: 30DAY S/P TAVR, LABS ECHO CT MORPH PRIOR, NEEDS EKG, KCCQ12, 5MWALK, LETTER GIVEN, HJK//PCP:Joey Jackson MD/) 07/14/2024 12:50 PM CDT Orders Only [facility] [address] [facility] [address] [place] [address] Lab 07/14/2024 12:09 PM CDT - 07/14/2024 11:59 PM CDT Hospital Encounter [facility] [address] [place] [address] Camron Ruiz NP Severe aortic stenosis 07/14/2024 Travel 07/14/2024 Orders Only [facility] [address] [place] [phone] Alonso Helm MD <No scans attached> 07/09/2024 Travel 07/07/2024 9:00 AM CDT Ancillary Procedure [facility] [address] [facility] [address] [place] [address] 07/07/2024 Travel from Last 3 Months Immunizations Immunization Administration Dates Next Due AMB INFLUENZA IIV3 (AGE 65+ YRS) PF (Flu Clinic Only) 01/31/2019,02/06/2017 Amb Influenza, Inactivated A IIV4 (Age 65+ Years) Preserv Free 01/17/2020 COVID-19 VACCINE SPIKEVAX (M ODERNA 50MCG/0.5ML) 12YO+ PFS 12/20/2023 COVID-19 vaccine (Pfizer-Bio NTech 30mcg/0.3mL) 12YO+ CHRIS-SUCROSE PF, MDV 09/08/2021 Influenza, Inactivated AIIV4 (Age 65+ Years) Preserv Free 01/25/2023,03/17/2021 Influenza, Inactivated IIV3 (Age 65+ Years) Preserv Free 12/20/2023 Pneumococcal Conj 20-valent (Prevnar 20) 024 Pneumococcal Poly,23-Valent (Pneumovax) 04/17/19 20 Td (Age >=7 Years) 04/23/2003 Tdap 10/01/2011 Zoster (Zostavax-ZVL, live) 10/01/2011 Family History Medical History Relation Name Comments Diabetes Brother 1 Heart Disease Brother 1 Thyroid Disease Brother 2 Cancer Mother lymphoma Other Mother lymphoma Thyroid Disease Mother Relation Name Status Comments Brother 1 Brother 2 Father Mother Social History Tobacco Use Types Packs/Day Years Used Date Smoking Tobacco: Never Smokeless Tobacco: Never Tobacco Cessation:Counseling Given: Yes Comments:some 2nd hand exposure- smokes Alcohol Use Standard Drinks/Week Comments Not Currently 0 (1 standard drink = 0.6 oz pur e alcohol) very occ whiskey PHQ-2 Answer Date Recorded PHQ-2 TOTAL SCORE 1 12/20/2023 Social Connections Answer Date Recorded Do you often feel lonely or isolated from those around you? 0 06/08/2024 Financial Resource Strain Answer Date R ecorded Difficulty of Paying Living Expenses 3 12/20/2023 Difficulty of Paying Living Expenses Not on file 12/20/2023 Food Insecurity Answer Date Recorded Do you worry your food will run out before you are able to buy more? 1 06/08/2024 Transportation Needs Answer Date Record ed Does lack of transportation keep you from medica l appointments? 1 06/08/2024 Does lack of transportation keep you from work, meetings or getting things that you need? 1 06/08/2024 Housing Stability Answer Date Recorded What is your housing situation today? 1 06/08/2024 Interpersonal Safety Answer Date Record ed Are you being hit, kicked, p ushed or yelled at (see row info)? No 06/08/2024 Interpersonal Safety Abuse 12 - 18 Not on file 06/08/2024 Interpersonal Safety Ambulatory Vulnerability No t on file 06/08/2024 Utilities Answer Date Recorded Do you have trouble paying f or utilities (for example, heat, electricity, water, phone)? 1 06/08/2024 Sex and Gender Information Value Date Recorded Sex Assigned at Not on file Legal Sex Male 5:25 AM TRAUMA MANAGER Gender Identity Male 04/16/2020 3:51 PM TRAUMA MANAGER Sexual Orientation Not on file Obstetrics History Last Filed Vital Signs Vital Sign Reading Time Taken Comments Blood Pressure 128/80 09/25/2024 9:51 AM CDT Pulse 68 09/25/2024 9:51 AM CDT Temperature 36.6 C (97.8 F) 06/08/2024 8:00 PM CDT Respiratory Rate 16 06/09/2024 7:50 AM CDT Oxygen Saturation 98% 09/25/2024 9:51 AM CDT Inhaled Oxygen Concentration - - Weight 115.7 kg (255 lb) 09/25/2024 9:51 AM CDT Height 167.6 cm (5' 5.98) 09/25/2024 9:51 AM CD T Body Mass Index 41.18 09/25/2024 9:51 AM CDT Plan of Treatment Upcoming Encounters Date Type Department Care Team (Late st Contact Info) Description 10/30/2024 7:30 AM CDT Orders Only [facility] [address] [place] [address] 10/30/2024 8:00 AM CDT Appointment [facility] [address] [place] [address] 10/30/2024 9:30 AM CDT Office Visit [facility] [address] [place] [address] Nicho Keys MD [address] [place] [address] 11/22/2024 11:00 AM CDT Office Visit [facility] [address] [place] [address] Uziel Hutchins MD [address] [facility] [address] 12/22/2024 1:35 PM CDT Office Visit [facility] [address] [place] [address] Joey Jackson MD [address] [place] [address] Health Maintenance Due Date Last Done Comments RSV vaccine for adults or (1 - Risk 60-74 years 1-dose series) 2011 Zoster (shingles) series for age 50+ (2 of 3) 11/26/2011 10/01/2011 Tetanus booster 09/30/2021 10/01/2011, 04/23/2003 COVID-19 vaccine series (2023- season) 2024 12/20/2023, 09/08/2021, 02/07/2021, Additional history exists Colonoscopy through age 75 08/13/202408/13, 08/13/2021, 08/13/2021, Additional history exists Influenza Vaccine (#1) 2024 , 01/25/2023, 03/17/2021, Additional history exists Depression screening for age 12+ 12/19/2024 12/20/2023, 11/20/2022, 08/06/2021, Additional history exists Medicare Wellness for age 65+ 12/20/2024 12/20/2023, 11/20/2022, 04/19/2020, Additional history exists BMI (ht and wt on same day) for age 18+ 09/25/2025 09/25/2024, 08/14/2024, 07/20/2024, Additional history exists Lipids for age 45-75 03/20/2029 03/20/2024, 12/20/2023, 11/20/2022, Additional history exists Hepatitis C screening for age 18-79 Completed 07/05/2018 Pneumococcal series for age 50+ Completed 12/20/2023, 04/17/2019 Hepatitis B series for 19+ Aged Out N o longer eligible based on patient's age to complete this topic Procedures Procedure Name Priority Date/Time Associated Diagnosis Comments PRO-BNP Routine 09/22/2024 9:20 AM CDT HFrEF (heart failure with reduced ejection fraction) (HC) BASIC METABOLIC PANEL Routine 09/22/2024 9:18 AM CDT HFrEF (heart failure with reduced ejection fraction) (HC) PRO-BNP Routine 08/29/2024 12:39 PM CDT HFrEF (heart failure with reduced ejection fraction) (HC) BASIC METABOLIC PANEL Routine 08/29/2024 12:39 PM CDT HFrEF (heart failure with reduced ejection fraction) (HC) PRO-BNP Routine 08/11/2024 9:52 AM CDT HFrEF (heart failure with reduced ejection fraction) (HC) BASIC METABOLIC PANEL Routine 08/11/2024 9:52 AM CDT HFrEF (heart failure with reduced ejection fraction) (HC) CBC W PLT NO DIFF Routine 07/20/2024 2:3 7 PM CDT Severe aortic stenosis BASIC METABOLIC PANEL Routine 07/20/2024 2:37 PM CDT Severe aortic stenosis EKG 12 LEAD Routine 07/14/2024 2:51 PM CDT Severe aortic stenosis CT CARDIAC MORPHOLOGY W CV DUAL READ Routine 07/14/2024 1:25 PM CDT Severe aortic stenosis CT CARDIAC MORPHOLOGY W RAD DUAL READ Routine 07/14/2024 1:25 PM CDT Severe aortic stenosis CREATININE,ISTAT Routine 07/14/2024 1:00 PM CDT CBC WITH AUTO DIFFERENTIAL Routine 07/14/2024 12:18 PM CDT S/P TAVR (transcatheter aortic valve replacement) TROPONIN T (HS) STABLE AMBULATORY Routine 07/14/2024 12:18 PM CDT S/P TAVR (transcatheter aortic valve replacement) PROTIME-INR Routine 07/14/2024 12:18 PM CDT S/P TAVR (transcatheter aortic valve replacement) CBC WITH AUTO DIFFERENTIAL Routine 07/14/2024 12:18 PM CDT S/P TAVR (transcatheter aortic valve replacement) APTT Routine 07/14/2024 12:18 PM CDT S/P TAVR (transcatheter aortic valve replacement) PRO-BNP Routine 07/14/2024 12:18 PM CDT HFrEF (heart failure with reduced ejection fraction) (HC) BASIC METABOLIC PANEL Routine 07/14/2024 12:18 PM CDT HFrEF (heart failure with reduced ejection fraction) (HC) ECHO TTE LIMITED W CONTRAST Routine 07/07/2024 9:13 AM CDT Severe aortic stenosis LIPID PANEL Early AM 03/20/2024 4:59 AM TRAUMA MANAGER COLONOSCOPY SCREENING Routine 08/13/2021 9:36 AM CDT History of colon polyps ANTI HCV Routine 07/05/2018 9:21 AM CDT Need for hepatitis C screening test from Last 3 Months or Most Recently Relevant to Health Maintenance Results * (ABNORMAL) PRO-BNP (09/22/2024 9:20 AM CDT) Only the most recent of4 resultswithin the time period is included. NT PROBNP 464(H) <125 pg/mL [facility] Blood BLOOD SPECIMEN / Unknown 09/22/2024 9:20 AM CDT 09/22/2024 9:20 AM CDT Nicho Keys MD SEND OUTS Final Re sult [facility] [address] [place] [address], [facility] [address] [place] [address] * (ABNORMAL) BASIC METABOLIC PANEL (09/22/2024 9:18 AM CDT) Only the most recent of5 resultswithin the time period is included. [facility] GLUCOSE 101(H) 65 - 99 mg/dL [facility] Comment: Fasting reference interval For someone without known diabetes, a glucose value between 100 and 125 mg/dL is consistent with prediabetes and should be confirmed with a follow-up test. UREA NITROGEN (BUN) 23 7 - 25 mg/dL [facility] CREATININE 1.24 0.70 - 1.28 mg/dL [facility] EGFR 61 > OR = 60 mL/min/1. 73m2 [facility] BUN/CREATININE RATIO SEE NOTE: 6 - 22 (calc) [facility] Comment: Not Reported: BUN and Creatinine are within reference range. SODIUM 138 135 - 146 mmol/L [facility] POTASSIUM 4.4 3.5 - 5.3 mmol/L [facility] CHLORIDE 108 98 - 110 mmol/L [facility] CARBON DIOXIDE 21 20 - 32 mmol/L [facility] ELECTROLYTE BALANCE 9 7 - 17 mmol/L (calc) [facility] CALCIUM 9.1 8.6 - 10.3 mg/dL [facility] Blood BLOOD SPECIMEN / Unknown 09/22/2024 9:18 AM CDT 09/22/2024 9:19 AM CDT Nicho Keys MD CHEMISTRY Final Re sult [facility] [address] [place] [address], [facility] [address] [place] [address] * (ABNORMAL) CBC W PLT NO DIFF (07/20/2024 2:37 PM CDT) Pathologist [facility] WHITE BLOOD COUNT 10.5 4.5 - 11.0 thou/cu mm 07/20/2024 3:04 PM CDT [facility] RED BLOOD COUNT 4.76 4.30 - 5.90 mil/cu mm 07/20/2024 3:04 PM CDT [facility] HEMOGLOBIN 14.3 13.5 - 17.5 g/dL 07/20/2024 3:04 PM CDT [facility] HEMATOCRIT 44.5 37.0 - 53.0 % 07/20/2024 3:04 PM CDT [facility] MCV 94 80 - 100 fL 07/20/2024 3:04 PM CDT [facility] MCH 30.0 26.0 - 34.0 pg 07/20/2024 3:04 PM CDT [facility] MCHC 32.1 32.0 - 36.0 g/dL 07/20/2024 3:04 PM CDT [facility] RDW 15.0 11.5 - 15.5 % 07/20/2024 3:04 PM CDT [facility] PLATELET COUNT 186 140 - 440 thou/cu mm 07/20/2024 3:04 PM CDT [facility] MPV 11.4(H) 6.5 - 11.0 fL 07/20/2024 3:04 PM CDT [facility] NRBC 0.0 % 07/20/2024 3:04 PM CDT [facility] ABS NRBC 0.0 thou /cu mm 07/20/2024 3:04 PM CDT [facility] Blood BLOOD SPECIMEN / Unknown Venipuncture / Unknown 07/20/2024 2:37 PM CDT 07/20/2024 2:57 PM CDT Camron Ruiz CONFIGURATION MANAGER HEMATOLOGY Final Resul t [facility] [address] [address], [place] * EKG 12 LEAD (07/14/2024 2:51 PM CDT) Interpretation Sinus rhythm with occasional and consecutive Premature ventricular complexes Possible Inferior infarct , age undetermined Abnormal ECG Ventricular Rate 82 BPM Atrial Rate 82 BPM P-R Interval 160 ms QRS Duration 100 ms QT 402 ms QTc 469 ms P Assumption 38 degrees R Assumption 49 degrees T Assumption -17 degrees 07/14/2024 2:51 PM CDT 07/17/2024 11:45 PM CDT Camron Ruiz NP EKG ORD Final Resul t * CT CARDIAC MORPHOLOGY W CV DUAL READ (07/14/2024 1:25 PM CDT) Anatomical Region Laterality Modality HEART Computed Tomogra phy Narrative 07/14/2024 1:52 PM CDT STUDY: CT CARDIAC MORPHOLOGY Study date: 07/14/24 Indication: 74 year-old man status post Julio 3 TAVR valve assess morphology. STUDY PARAMETERS: Scanner: Siemens Force Contrast: 70 ml of Omnipaque 350 Scan protocol: Helical with dose modulation Radiation dose length product: 2226 Image quality: Good FINDINGS: Aortic valve: well seated and positioned Julio 3 TAVR valve. No limited leaflet motion or HALT. Left atrium: {No atrial appendage thrombus. Pericardium: Normal without effusion Noncardiac findings: Please see separate radiology report. FINAL IMPRESSIONS: Normal functioning and positioned Julio 3 TAVR valve. No left atrial appendage thrombus. FOR PATIENT: Results are automatically released to your [employer] ([employer]) account once available, in compliance with federal regulations. This means that you may see your results before your provider has had a chance to review them. Please allow 2-3 business days for your provider to comment on the results. Reading hospitalist: Kaushik Oviedo MD 07/14/2024 us Camron Ruiz CONFIGURATION MANAGER CT Final Resul t * CT CARDIAC MORPHOLOGY W RAD DUAL READ (07/14/2024 1:25 PM CDT) Anatomical Region Laterality Modality HEART Computed Tomogra phy 07/14/2024 8:07 PM CDT Narrative 07/14/2024 8:07 PM CDT For Patients: As a result of the Cures Act, medical imaging exams and procedure reports are released immediately into your electronic medical record. You may view this report before your referring provider. If you have questions, please contact your health care provider. THIS IS THE RADIOLOGY OVER READ REPORT OF A DUAL READ STUDY. READ THE SEPARATE CARDIOLOGY REPORT FOR CARDIOVASCULAR FINDINGS. REPORTS MAY BE FINALIZED AT DIFFERENT TIMES. COMPARISON : Chest CT 03/20/2024 TECHNIQUE : Please see cardiology report for technical information. This exam is being performed in conjunction with the services provided by the [facility] ([facility]). INDICATION: Cardiac over-read. Morphology FINDINGS: Aorta: This is reported by cardiology. Mediastinum: No adenopathy. Pulmonary arteries: Bolus timing may limit evaluation. Visualized/opacified pulmonary arteries demonstrate no filling defects. Lungs and pleural structures: Clear with no pleural effusions or suspicious nodules. Miscellaneous: No acute or suspicious skeletal or upper abdominal imaging abnormality. IMPRESSION : 1. See separate cardiology report for cardiac/aortic findings. 2. No new significant extra cardiac imaging abnormality. Please note that all CT scans at this facility use dose modulation, iterative reconstruction, and/or weight-based dosing when appropriate to reduce radiation dose to as low as reasonably achievable. Dictated by Thad Matta MD @ 07/14/2024 8:07:47 PM (Electronically Signed) Procedure Note Thad Matta MD - 07/14/2024 For Patients: As a result of the Cures Act, medical imagingexams and procedure reports are released immediately into your electronicmedical record. You may view this report before your referring provider.If you have questions, please contact your health care provider. THIS IS THE RADIOLOGY OVER READ REPORT OF A DUAL READ STUDY. READ THESEPARATE CARDIOLOGY REPORT FOR CARDIOVASCULAR FINDINGS. REPORTS MAY BEFINALIZED AT DIFFERENT TIMES. COMPARISON : Chest CT 03/20/2024 TECHNIQUE : Please see cardiology report for technical information. This exam is being performed in conjunction with the services provided bythe [facility] ([facility]). INDICATION: Cardiac over-read. Morphology FINDINGS: Aorta: This is reported by cardiology. Mediastinum: No adenopathy. Pulmonary arteries: Bolus timing may limit evaluation. Visualized/opacified pulmonary arteriesdemonstrate no filling defects. Lungs and pleural structures: Clear with no pleural effusions orsuspicious nodules. Miscellaneous: No acute or suspicious skeletal or upper abdominal imagingabnormality. IMPRESSION : 1. See separate cardiology report for cardiac/aortic findings. 2. No new significant extra cardiac imaging abnormality. Please note that all CT scans at this facility use dose modulation,iterative reconstruction, and/or weight-based dosing when appropriate toreduce radiation dose to as low as reasonably achievable. Dictated by Thad Matta MD @ 07/14/2024 8:07:47 PM (Electronically Signed) us Camron Ruiz CONFIGURATION MANAGER CT Final Resul t * (ABNORMAL) CREATININE,ISTAT (07/14/2024 1:00 PM CDT) [facility] CREATININE, POCT 1.00 0.57 - 1.11 mg/dL 07/17/2024 12:26 PM CDT [facility] [facility] Comment:Caution: Patients ta rama Hydroxyurea have falsely increased iStat Creatinine results. Verify creatinine results ordering a Creatinine (75152.2) eGFR 79(L) >90 mL/min/1.7 3m2 07/17/2024 12:26 PM CDT [facility] Comment:As of 2021, eG FR is calculated by the CKD-EPI creatinine equation without race adjustment. eGFR can be influenced by muscle mass, exercise, and diet. The reported eGFR is an estimation only and is only applicable if the renal function is stable. Blood BLOOD SPECIMEN / Unknown 07/14/2024 1:00 PM CDT 07/17/2024 12:26 PM CDT Camron Ruiz NP CHEMISTRY Final Resul t Performing Organization Address [facility] Co de Phone Number [facility] [address] [place] [address], [place] * (ABNORMAL) TROPONIN T (HS) STABLE AMBULATORY (07/14/2024 12:18 PM CDT) [facility] TROPONIN T HS 28(H) 6-15 ng/L ng/L 07/14/2024 1:12 PM CDT [facility] Blood BLOOD SPECIMEN / Unknown Venipuncture / Unknown 07/14/2024 12:18 PM CDT 07/14/2024 12:19 PM CDT Narrative [facility] - 07/14/2024 1:12 PM CDT hs-cTnT (Elecsys Troponin T Gen 5) concentration (s) above the sex-specific 99th percentile (16 ng/L or greater for males or 11 ng/L or greater for females) are indicative of myocardial injury. There are multiple etiologies that can cause hs-cTnT increases above the 99th percentile (myocardial injury) other than acute myocardial infarction. Clinical context and careful clinical evaluation are critical for diagnosis and risk-stratification. The diagnosis of acute myocardial infarction requires a rising and/or falling pattern in hs-cTnT concentrations with at least one value above the sex-specific 99th percentile PLUS at least one of the following clinical criteria: ischemic symptoms, new or presumed new significant ST-T wave changes or new LBBB, development of pathological Q waves, imaging evidence of new loss of viable myocardium or new regional wall motion abnormality, or identification of intracoronary atherothrombosis or an acute angiographic culprit on coronary angiography. Alonso Helm MD CHEMISTRY Final Result Performing Organization Address [facility] Co de Phone Number [facility] [address] [address], [place] * (ABNORMAL) CBC WITH AUTO DIFFERENTIAL (07/14/2024 12:18 PM CDT) WHITE BLOOD COUNT 9.7 4.5 - 11.0 thou/cu mm 07/14/2024 12:42 PM CDT [facility] RED BLOOD COUNT 4.89 4.30 - 5.90 mil/cu mm 07/14/2024 12:42 PM CDT [facility] HEMOGLOBIN 15.0 13.5 - 17.5 g/dL 07/14/2024 12:42 PM T [facility] HEMATOCRIT 45.9 37.0 - 53.0 % 07/14/2024 12:42 PM CDT [facility] MCV 94 80 - 100 fL 07/14/2024 12:42 PM CDT [facility] MCH 30.7 26.0 - 34.0 pg 07/14/2024 12:42 PM CDT [facility] MCHC 32.7 32.0 - 36.0 g/dL 07/14/2024 12:42 PM CDT [facility] RDW 15.2 11.5 - 15.5 % 07/14/2024 12:42 PM CDT [facility] PLATELET COUNT 171 140 - 440 thou/cu mm 07/14/2024 12:42 PM CDT [facility] MPV 11.6(H) 6.5 - 11.0 fL 07/14/2024 12:42 PM [facility] NRBC 0.0 % 07/14/2024 12:42 PM CDT [facility] ABS NRBC 0.0 thou /cu mm 07/14/2024 12:42 PM T [facility] % NEUT 50.8 % 07/14/2024 12:42 PM CDT [facility] % LYMPH 27.4 % 07/14/2024 12:42 PM CDT [facility] % MONO 16.2 % 07/14/2024 12:42 PM CDT [facility] % EOS 4.2 % 07/14/2024 12:42 PM CDT [facility] % BASO 0.9 % 07/14/2024 12:42 PM CDT [facility] % IMMATURE GRAN (METAS,MYELOS,KY OS) 0.5 % 07/14/2024 12:42 PM CDT [facility] ABSOLUTE NEUTROPHILS 4.9 1.7 - 7.0 thou/cu mm 07/14/2024 12:42 PM CDT [facility] ABSOLUTE LYMPHOCYTES 2.7 0.9 - 2.9 thou/cu mm 07/14/2024 12:42 PM CDT [facility] ABSOLUTE MONOCYTES 1.6(H) <0.9 thou/cu mm 07/14/2024 12:42 PM CDT [facility] ABSOLUTE EOSINOPHILS 0.4 <0.5 thou/cu mm 07/14/2024 12:42 PM CDT [facility] ABSOLUTE BASOPHILS 0.1 <0.3 thou/cu mm 07/14/2024 12:42 PM CDT [facility] ABSOLUTE IMMATURE GRANULOCYTES(MET ,MYELOS,PROS) 0.1 <0.3 thou/cu mm 07/14/2024 12:42 PM CDT [facility] Blood BLOOD SPECIMEN / Unknown Venipuncture / Unknown 07/14/2024 12:18 PM CDT 07/14/2024 12:19 PM CDT us Alonso Helm MD HEMATOLOGY Final Result [facility] [address] [place] [address], * APTT (07/14/2024 12:18 PM CDT) APTT 36 25 - 36 sec 07/14/2024 12:50 PM CDT [facility] Blood BLOOD SPECIMEN / Unknown Venipuncture / Unknown 07/14/2024 12:18 PM CDT 07/14/2024 12:19 PM CDT Narrative [facility] - 07/14/2024 12:50 PM CDT Therapeutic Range: 59-89 seconds Alonso Helm MD HEMATOLOGY Final Result Performing Organization Address [facility] Co de Phone Number [facility] [address] [address], [place] * PROTIME-INR (07/14/2024 12:18 PM CDT) INR 1.0 <1.3 07/14/2024 12:50 PM CDT [facility] PROTIME 11.5 10.6 - 12.4 sec 07/14/2024 12:50 PM CDT [facility] Blood BLOOD SPECIMEN / Unknown Venipuncture / Unknown 07/14/2024 12:18 PM CDT 07/14/2024 12:19 PM CDT Narrative [facility] - 07/14/2024 12:50 PM CDT Therapeutic Range 2.0-3.0 for most anticoagulated patients 2.5-3.5 or 4.0 for high risk patients The INR is only used for patients on stable oral anticoagulant therapy. It makes no significant contribution to the diagnosis or treatment of patients whose Protime is prolonged for other reasons. INR results are increased when heparin levels exceed 1.0 U/mL, which corresponds to an aPTT >125 seconds if the patient is on UFH. Alonso Helm MD HEMATOLOGY Final Result Performing Organization Address [facility] Co de Phone Number [facility] [address] [address], [place] * ECHO TTE LIMITED W CONTRAST (07/07/2024 9:13 AM CDT) AORTIC VALVE MEAN PG 8 mmHg EJECTION FRACTION 38 % LVEDD 6.1 cm EJECTION FRACTION 35 - 40% Anatomical Region Laterality Modality Ultrasound 07/07/2024 8:4 2 AM CDT Narrative 07/07/2024 9:26 AM CDT ECHOCARDIOGRAM JERRY SMILEY II : 1950 74 years Study Date: 07/07/2024 8:42:09 AM Gender: M BP: 118/62 mmHg Height: 167.64 cm BSA: 2.20 m Weight: 112.95 kg Tech: MSR Referring MD: CAMRON RUIZ Site: [facility] [place] Location: [place] [facility] Patient Location: Outpatient. Procedure: Limited Echo w/ Contrast, Spectral Doppler and Color Doppler. Indication for study: Severe aortic stenosis Cardiac Rhythm: Unknown.Study quality: Technically limited. Final Impressions: Limited Echocardiogram performed 1. Technically limited exam. 2. Moderately increased LV size, moderately reduced global systolic function with an estimated EF of 35 - 40%. 3. 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 There is trivial paravalvular regurgitation. 4. Right ventricular cavity size is normal, global systolic RV function is normal. 5. The mitral valve is normal, mild mitral regurgitation. 6. Echo contrast was administered to enhance visualization of all left ventricular segments. Chamber Sizes and Function Moderately increased left ventricular size, moderately reduced global systolic function with an estimated EF of 35 - 40%. Right ventricular cavity size is normal, global systolic RV function is normal. RV wall thickness is normal. Valves, RV Pressures and Diastolic Function The aortic valve is 29 S3, no stenosis and no regurgitation. There is trivial paravalvular reguritation. The mitral valve is normal in structure, mild mitral regurgitation. The mitral valve peak velocity is 1.41 m/s and the mean gradient is 4.0 mmHg. Masses, Effusion, Shunts The inferior vena cava is normal sized, respiratory size variation greater than 50%. MEASUREMENTS AND CALCULATIONS 2-D Measurements and LV Function: LVID (d) 6.1 cm LV FS% (2D) 36 % LVID (s) 3.9 cm LVOT diameter 2.3 cm IVS (d) 1.0 cm HR 74 bpm LVPW (d) 1.1 cm Ao Sinus ULN 4.2 cm * Asc Ao 3.8 cm Asc Ao ULN 4.3 cm * * Input BSA outside of range, reported values correspond to BSA = 2.1 Diastology: Mitral Tissue Doppler E Peak 1.04 m/s e', Septum 0.05 m/s A Peak 1.10 m/s e', Lateral 0.06 m/s E/A 0.9 E/e' Average 19.37 DT 191 msec Aortic Valve: Vmax 1.9 m/s LIZETTE (V) 2.75 cm VTI 0.41 m LIZETTE (I) 2.99 cm LVOT V max 1.2 m/s Max PG 14 mmHg LVOT VTI 0.29 m Mean PG 8 mmHg SV 122 ml Dim Index 0.72 SV index 55 ml/m CO 9.0 l/min CI 4.1 l/min/m Mitral Valve: MVA 4.0 cm MV P 1/2 55 msec MV Mean G 4 mmHg Tricuspid Valve and estimated PA pressures: TAPSE 2.8 cm Contrast documentation: 2ml ml diluted Definity, lot #[id number], [facility]# [id number] was administered peripherally to enhance visualization of all left ventricular segments. . This study was interpreted by an IAC accredited facility. Final Procedure Note Martell Oliver MD - 07/07/2024 ECHOCARDIOGRAM JERRY SMILEY II : 1950 74 years Study Date: 07/07/2024 8:42:09 AM Gender: M BP: 118/62 mmHg Height: 167.64 cm BSA: 2.20 m Weight: 112.95 kg Tech: MSR Referring MD: CAMRON RUIZ Site: [facility] [place] Location: [place] [facility] Patient Location: Outpatient. Procedure: Limited Echo w/ Contrast, Spectral Doppler and Color Doppler. Indication for study: Severe aortic stenosis Cardiac Rhythm: Unknown.Study quality: Technically limited. Final Impressions: Limited Echocardiogram performed 1. Technically limited exam. 2. Moderately increased LV size, moderately reduced global systolicfunction with an estimated EF of 35 - 40%. 3. 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 There is trivial paravalvular regurgitation. 4. Right ventricular cavity size is normal, global systolic RV functionis normal. 5. The mitral valve is normal, mild mitral regurgitation. 6. Echo contrast was administered to enhance visualization of all leftventricular segments. Chamber Sizes and Function Moderately increased left ventricular size, moderately reduced globalsystolic function with an estimated EF of 35 - 40%. Right ventricularcavity size is normal, global systolic RV function is normal. RV wallthickness is normal. Valves, RV Pressures and Diastolic Function The aortic valve is 29 S3, no stenosis and no regurgitation. There istrivial paravalvular reguritation. The mitral valve is normal instructure, mild mitral regurgitation. The mitral valve peak velocity is1.41 m/s and the mean gradient is 4.0 mmHg. Masses, Effusion, Shunts The inferior vena cava is normal sized, respiratory size variation greaterthan 50%. MEASUREMENTS AND CALCULATIONS 2-D Measurements and LV Function: LVID (d) 6.1 cm LV FS% (2D)36 % LVID (s) 3.9 cm LVOT diameter2.3 cm IVS (d) 1.0 cm HR74 bpm LVPW (d) 1.1 cm Ao Sinus ULN 4.2 cm * Asc Ao 3.8 cm Asc Ao ULN 4.3 cm * * Input BSA outside of range, reported values correspond to BSA = 2.1 Diastology: Mitral Tissue Doppler E Peak 1.04 m/s e', Septum 0.05 m/s A Peak 1.10 m/s e', Lateral 0.06 m/s E/A 0.9 E/e' Average 19.37 DT 191 msec Aortic Valve: Vmax 1.9 m/s LIZETTE (V) 2.75 cm VTI 0.41 m LIZETTE (I) 2.99 cm LVOT V max 1.2 m/s Max PG 14 mmHg LVOT VTI 0.29 m Mean PG 8 mmHg SV 122 ml Dim Index 0.72 SV index 55 ml/m CO 9.0 l/min CI 4.1 l/min/m Mitral Valve: MVA 4.0 cm MV P 1/2 55 msec MV Mean G 4 mmHg Tricuspid Valve and estimated PA pressures: TAPSE 2.8 cm Contrast documentation: 2ml ml diluted Definity, lot #[id number], [facility]#[id number] was administered peripherally to enhance visualization of allleft ventricular segments. . This study was interpreted by an IAC accredited facility. Final us Camron Ruiz CONFIGURATION MANAGER ECHO ORD Final Resul t * (ABNORMAL) LIPID PANEL (03/20/2024 4:59 AM TRAUMA MANAGER) CHOLESTEROL,TOTAL 108 100 - 199 mg/dL 03/20/2024 5:41 AM TRAUMA MANAGER [facility] Comment: Cholesterol, Total Reference Ranges Desirable <200 mg/dL Borderline 200-239 mg/dL High >=240 mg/dL TRIGLYCERIDES 153(H) <150 mg/dL 03/20/2024 5:41 AM TRAUMA MANAGER [facility] HDL CHOLESTEROL 38(L) >40 mg/dL 5:41 AM TRAUMA MANAGER [facility] NON-HDL CHOLESTEROL 70 <145 mg/dl 03/20/2024 5:41 AM TRAUMA MANAGER [facility] CHOL/HDL RATIO 2.84 <4.50 03/20/2024 5:41 AM TRAUMA MANAGER [facility] LDL CHOLESTEROL 39 <=130 mg/dL 03/20/2024 5:41 AM TRAUMA MANAGER [facility] VLDL CHOLESTEROL 31(H) <=30 mg/dL 03/20/2024 5:41 AM TRAUMA MANAGER [facility] PROVIDER ORDERED STATUS RANDOM 03/20/2024 5:41 AM TRAUMA MANAGER [facility] Blood BLOOD SPECIMEN / Unknown Venipuncture / Unknown 03/20/2024 4:59 AM TRAUMA MANAGER 03/20/2024 5:06 AM TRAUMA MANAGER us Miracel Burgess NP CHEMISTRY Final Result [facility] [address] [place] [address], [place] * COLONOSCOPY (08/13/2021 9:06 AM CDT) 08/13/2021 9:06 AM CDT Narrative Transcriptions Gregory Espinosa MD - 08/13/2021 10:34 AM CDT Patient Name: Jerry Smiley Procedure Date: 08/13/2021 Gender: Male Date of : 1950 Admit Type: Outpatient Procedure: Colonoscopy Proceduralist: Gregory Espinosa MD , Elva Marques, RN(Nurse) Referring MD: Joey Jackson Indications/Pre-Op Diagnosis: High risk colon cancer surveillance:Personal history of multiple (3 or more) adenomas,Last colonoscopy: August 2017 Medications: Fentanyl 100 micrograms IV, Midazolam 3 mgIV, The level of sedation administered wasmoderate Procedure Description: The patient had risks, benefits and alternatives explained to andgave informed consent. The patient had a stable cardiopulmonary status and judged an adequate candidate for conscious sedation. The colonoscope was passed through the anus and advanced to thececum, identified by appendiceal orifice and ileocecal valve. Thecolonoscopy was performed without difficulty. The patient tolerated the procedure well. The quality of the bowel preparation was good. The ileocecal valve, appendiceal orifice, and rectum were photographed. Complications: No immediate complications. Estimated Blood Loss & Specimen: Estimated blood loss: none. Specimen collected - Yes and sent to Laboratory Findings: The perianal and digital rectal examinations were normal. A 10 mm polyp was found in the mid ascending colon. The polyp was sessile. The polyp was removed with a hot snare. Resection andretrieval were complete. To prevent bleeding after the polypectomy, onehemostatic clip was successfully placed (MR conditional). There was no bleeding during, or at the end, of the procedure. Scattered small and large-mouthed diverticula were found in thesigmoid colon. The exam was otherwise without abnormality on direct and retroflexion views. Impressions/Post-Op Diagnosis: - One 10 mm polyp in the mid ascending colon, removed with a hotsnare. Resected and retrieved. Clip (MR conditional) was placed. - Diverticulosis in the sigmoid colon. - The examination was otherwise normal on direct and retroflexionviews. Recommendation: - Patient has a contact number available for emergencies. The signsand symptoms of potential delayed complications were discussed with the patient. Return to normal activities tomorrow. Written discharge instructions were provided to the patient. - Resume previous diet. - Continue present medications. - Await pathology results. - Repeat colonoscopy is recommended. The colonoscopy date will be determined after pathology results from today's exam become available for review. Moderate Sedation: Moderate (conscious) sedation was administered by the endoscopy nurse and supervised by the endoscopist. The following parameters were monitored: oxygen saturation, heart rate, respiratory rate, blood pressure, adequacy of pulmonary ventilation and reponse to care. Please refer to the patient's medical record flowsheets and nursing notes for moderate sedation details. Total physician intraservice time was 23 minutes. Gregory Espinosa MD 08/13/2021 10:34:08 AM This report has been signed electronically. Note Initiated On: 08/13/2021 9:06 AM Procedure Code(s): --- Professional --- 64455, Colonoscopy, flexible; with removalof tumor(s), polyp(s), or other lesion(s) bysnare technique Diagnosis Code(s): --- Professional --- Z86.010, Personal history of colonicpolyps K63.5, Polyp of colon K57.30, Diverticulosis of large intestine without perforation or abscess withoutbleeding CPT copyright 2020 [employer]. All rights reserved. The codes documented in this report are preliminary and upon clinical coder reviewmay be revised to meet current compliance requirements. Scope In: 10:07:00 AM Scope Withdrawal Time 0 hours 16 minutes 48 seconds Scope Out: 10:28:46 AM us Gregory Espinosa MD PROCEDURE ORD Final Res ult * ANTI HCV [89621.2] (07/05/2018 9:21 AM CDT) HEPATITIS C ANTIBODY Non-React ryan Non-React ryan 07/05/2018 7:15 PM CDT [facility] Comment:Antibodies to HCV no t detected; does not exclude the possibility of exposure to HCV. Blood BLOOD SPECIMEN / Unknown Venipuncture / Unknown 07/05/2018 9:21 AM CDT 07/05/2018 9:24 AM CDT us Joey Jackson MD SEND OUTS Final Resu lt [facility] [address] [place] [address], [place] from Last 3 Months or Most Recently Relevant to Health Maintenance Insurance MEDICARE PB ONLY MEDICARE PART B HB ONLY MEDICARE PART A HB ONLY BLUE [employer] [place] [employer] EMP Member Subscriber Plan / Payer (Ef fective 2024-Present) Name:Jerry Smiley II Relation to Subscriber:Self Name:Jerry Smiley II Payer ID:[id number] (NAIC) Group ID:[id number] Type:Not on file Address: [address] [address] [place] [address] Advance Directives * Full Code (Latest Code Status on File) Date Activated Date Inactivated Comments 06/08/2024 12:51 PM 06/09/2024 1:12 PM Question Answer Comments Code Status Discussion: Reviewed Preferences * Full Code Date Activated Date Inactivated Comments 03/19/2024 8:31 PM 03/27/2024 5:48 PM Question Answer Comments Code Status Discussion: Reviewed Preferences * Full Code Date Activated Date Inactivated Comments 08/02/2017 7:09 AM 08/02/2017 1:39 PM Care Teams In Processing Instructor Relationship Specialty Start Date End Date Joey Jackson MD [address] [place] [address] PCP - General Family Practice 07/19/17 Nurses, Advanced Heart Failure [address] [place] [address] Heart Failure Care Coordination Advanced Heart Failure/Transplant Card 04/13/24 Nicho Keys MD [address] [address] Cardiology - CHF Cardiovascular Disease 07/20/24
--- OUTSIDE RECORDS SUMMARY | 2024-10-04 18:56 | XMS_ITS | Encounter Summary ---
Author Organization [facility] Address [address] [place] [address] Care Team Providers Care Patrol Community Service Officer Name Role Phone Unavailable Primary Care Provider Unavailabl e Reason for Visit * Reason Onset Date Comments Scheduling 08/25/2024 Encounter Details Date Type Department Care Team (Latest Contact Info) Description 08/25/2024 Clinical Communication Department of Cardiac Rehabilitation in [address] [place] [phone] Elva Feldman Scheduling Social History Tobacco Use Types Packs/Day Years Used Date Smoking Tobacco: Never Assessed Depression Answer Date Recor ded PHQ-9 Total Score (max 27) 3 06/29 Sex and Gender Information Value Date Recorded Sex Assigned at Not on file Legal 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
--- OUTSIDE RECORDS SUMMARY | 2024-10-04 18:56 | XMS_ITS | Encounter Summary ---
Author Organization [facility] Address [address] [place] [address] Care Team Providers Care Purification Supervisor Name Role Phone Unavailable Primary Care Provider Unavailabl e Encounter Details Date Type Department Care Team (Latest Contact Info) Description 10/03/2024 Plan of Care Documentation Department of Cardiac Rehabilitation in [address] [place] [id number] Social History Tobacco Use Types Packs/Day Years Used Date Smoking Tobacco: Never Assessed Depression Answer Date Recor ded PHQ-9 Total Score (max 27) 2 09/27 Sex and Gender Information Value Date Recorded Sex Assigned at Not on file 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 Mr. Newberry (74 y.o., : 1950, ) was referred to the [facility] Cardiac Rehab Program on 06/20/2024, by Leo Clay M.D. and has completed 27 sessions out of the 36 prescribed. PCP: No primary care provider on file. Dental Laboratory Assistant: Jethro Marina M.D. Program: Cardiac Rehab Phase II Type: Center-Based Intake Date: 06/27/2024 Date of Enrollment: 06/29/2024 Primary Diagnosis: CATHIE 06/08/2024 Secondary Diagnosis: PCI 03/26/2024 AACVPR Risk: High 06/27/2024 07/25/2024 08/22/2024 09/19/2024 09/27/2024 Symptoms ITP Inclusion: Symptoms Initial Reassessment Reassessment Reassessment Discharge Synopsis Pt was referred to CR following TAVR on 06/08. He experienced a CHF exacerbation, symptoms included increased MENJIVAR, leg edema, and a congestive cough, in February of 2024 which led to pt receiving 3 stents to his LAD on 03/26. He also experienced a loss of 20+ lbs of fluid during his hospital ization. 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 Since he's been home, he's been feeling signficiantly better. He reports no concerns for HF symptoms at this time. He is monitoring weights daily. He has f/u visits at the [facility] in June along with his PCP at the [facility] in [place]. Pt has been attending CR regularly and tolerating exercise well. He's had no cardiac Sx. He had f/u visits with his Cardiology team and the Advanced HF clinic at [place] this month. HF medications were up titrated per guidelines. He will continue to follow with their HF clinic and adjust meds until optimized. He had an updated ECHO completed on 07/07 which did show improvement in LVEF. Pt has been attending CR regularly and progressing well. He had f/u visits with the HF clinic again, valsartan was titrated. He's been tolerating HF med titrations well with no new symptoms or concerns. Pt has been tolerating exercise well. Overall, no new cardiac Sx or concerns. HF medications have been adjusted per protocol. Since some of his recent med dose changes he has reported increases in fatigue and a general lack of motivation to attend CR or exercise at home. He isn't sure if this is related to medications or an emotional psychosocial concern. He will be see CHF team on09/22 with Gregory. Pt has hit a plateau with exercise workloads and feels he gets a good workout in by the end of his sessions, vitals have all remained stable. We discussed discharging pt from CR at 12 weeks from intake which will be the week of 09/27. Pt has remained free of all cardiac Sx. Fatigue and lack of motivation symptoms have improved some. He had a f/u with his CHF team during which metoprolol was up titrated again to 50 mg BID. Pt has tolerated this well so far. His next CVD f/u will be 10/30. Cardiovascular Symptoms Fatigue;Shortness of Breath None None None None Home O2 Use No No No No No Ejection Fraction Date 06/08/2024 07/07/2024 Ejection Fraction (EF) % 20 % 20-25% 35 % 35-40% Other Education Documentation Cardiac Rehab Progress Report, taught by Merlene Weinberg CCRP, CEP at 09/27/2024 9:24 AM. Learner: Patient Readiness: Acceptance Method: Explanation, Handout Response: Able to Teach Back Individualized ExRx, taught by Merlene Weinberg CCRP, CEP at 09/27/2024 9:24 AM. Learner: Patient Readiness: Acceptance Method: Explanation, Handout Response: Able to Teach Back Cardiac Rehab Program Overview, taught by Merlene Weinberg CCRP, CEP at 06/27/2024 1:05 PM. Learner: Patient Readiness: Acceptance Method: Explanation, Handout Response: Able to Teach Back Exercise Assessment 06/29/2024 09/27/2024 DASI Calculations Estimated V02 Peak 16.57 29.79 Estimated MET Level 4.73 8.51 Six Minute Walk 06/29/2024 09/27/2024 Total Distance Walked (Meters) 338.33 396.24 Estimated METs 2.61 2.92 % of Predicted Distance 83.99 98.37 Comments Patient's pain rating is general orthopedic pain, no worsening pain with exercises. 06/27/2024 07/24/2024 08/16/2024 09/18/2024 09/27/2024 Exercise Assessment ITP Inclusion: Exercise Assessment Initial Reassessment Reassessment Reassessment Discharge Resting HR (Telemetry) 86 92 85 74 Resting Pulse 87 Pulse Rate Source Pulse oximetry Cardiac Rhythm SR SR SR SR SR Ectopy PVCs;Triplet PVCs;Couplet PVCs;Unifocal PVCs PVCs;Triplet PVCs;Couplet PVCs;Unifocal PVCs PVCs;Triplet PVCs;Couplet PVCs;Unifocal PVCs PVCs;Triplet PVCs;Couplet PVCs;Unifocal PVCs Ectopy Frequency Frequent;Bigeminal Frequent;Bigeminal Frequent;Bigeminal Frequent;Bigeminal Exercise Limitations Yes No No No No Limitation Description Spinal stenosis, bilateral rotator cuff tears Action Taken Will monitor pain and adjust ExRx prn Assistive Device None None None None None Peak METs 4 4.5 6.7 6.7 Aerobic Minutes per Day (Home) 0 minutes 0 minutes 0 minutes 0 minutes 0 minutes Aerobic Days per Week (Home) 0 Days 0 Days 0 Days 0 Days 0 Days Aerobic Minutes per Day (Rehab) 0 minutes 43 minutes 43 minutes 43 minutes 43 minutes Aerobic Days per Week (Rehab) 0 Days 3 Days 3 Days 3 Days 3 Days Aerobic Minutes per Week 0 129 129 129 129 Strength Training Days per Week 0 Days 0 Days 0 Days 0 Days 0 Days Flexibility Training Days per Week 0 0 0 0 0 30 second chair stand 12 06/27/2024 07/25/2024 08/22/2024 09/19/2024 09/27/2024 Exercise Prescription Frequency of Sessions Weekly Weekly Weekly Weekly Weekly Sessions per week 3-4 3-4 3-5 3-5 3-5 Intensity Work at a level that is comfortable but also challenging Work at a level that is comfortable but also challenging Work at a level that is comfortable but also challenging Work at a level that is comfortable but also challenging Work at a level that is comfortable but also challenging Rating of Perceived Exertion range (RPE): 11-14 11-15 11-15 11-15 11-15 Warm Up Minutes: 2-3 2-3 2-3 2-3 2-3 Aerobic exercise minutes: 20-30 30-45 30-45 30-45 30-45 Cool Down minutes: 2-3 2-3 2-3 2-3 2-3 Goal Minutes/session 30 30+ 30+ 30+ 30+ Goal Minutes/Week 150 150+ 150+ 150+ 150+ Rehab Aerobic Exercise Equipment Treadmill;Arm Ergometer;Recumbent stepper (with or without arms);Walking Treadmill;Arm Ergometer;Recumbent stepper (with or without arms) Treadmill;Arm Ergometer;Recumbent stepper (with or without arms) Treadmill;Arm Ergometer;Recumbent stepper (with or without arms) Treadmill;Arm Ergometer;Recumbent stepper (with or without arms);Walking Non-Rehab Aerobic Exercise Equipment Walking Treadmill Treadmill;Walking Treadmill;Walking Walking Progression Use RPE to guide when to increase work level intensity and duration;Follow/match rehab intensity;Increase 1-5 minutes each session, as tolerated Use RPE to guide when to increase work level intensity and duration;Follow/match rehab intensity;Increase 1-5 minutes each session, as tolerated Use RPE to guide when to increase work level intensity and duration;Follow/match rehab intensity Use RPE to guide when to increase work level intensity and duration;Follow/match rehab intensity UseRPE to guide when to increase work level intensity and duration;Follow/match rehab intensity Flexibility and Balance Stretch major muscle groups daily Stretch major muscle groups daily Stretchmajor muscle groups daily Stretch major muscle groups daily Stretch major muscle groups daily Strength Training Calisthenics Calisthenics Calisthenics CalistTabUp Calisthenics Number of strength sessions per week: 2-3 2-3 2-3 2-3 2-3 Reps: 10 10-15 10-15 10-15 10-15 Sets: 1 1-2 1-2 1-2 1-2 Hobbies/Activities Avoid prolonged sitting Avoid prolonged sitting Avoid prolonged sitting Avoid prolonged sitting Avoid prolonged sitting 06/27/2024 07/25/2024 08/22/2024 09/19/2024 09/27/2024 Exercise Plan Goals Compliance to on-site program;Compliance to home program;Improve exercise tolerance;Increase exercise duration;Increase exercise intensity;Increase frequency of exercise;Establish independent exercise routine Compliance to on- site program;Compliance to home program;Improve exercise tolerance;Increase exercise duration;Increase exercise intensity;Increase frequency of exercise;Establish independent exercise routine Compliance to on-site program;Compliance to home program;Improve exercise tolerance;Increase exercise duration;Increase exercise intensity;Increase frequency of exercise;Establish independent exercise routine Compliance to on-site program;Compliance to home program;Maintain current exercise routine, progress as tolerated Compliance to on-site program;Compliance to home program;Maintain current exercise routine, progress as tolerated Interventions Facility orientation;Equipment instruction;Review of signs/symptoms to report;Exercise/activity guidelines;Therapist Discussion Facility orientation;Equipment instruction;Review of signs/symptoms to report;Exercise/activity guidelines;Therapist Discussion Review of signs/symptoms to report;Exercise/activity guidelines;Therapist Discussion Exercise/activity guidelines;Therapist Discussion Exercise/activity guidelines;Therapist Discussion Progress Toward Goals 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 He has also been a member at a gym before utilizing weight machines and aerobic machines. He is motivated to start an exercise routine again, especially now that he is feeling better. He does not currently have any exercise equipment available to him but has a very supportive family who is hoping to get him outside walking regularly. He has 2 young grandkids who keep him active right now as well. Pt has been tolerating exercise well inCR and progressing workload appropriately. Back pain has not been a limiting factor and he has gotten comfortable on the TM, tolerating 15 continuous minutes. Home exercise has not been structured but he's been able to be more active with his grandkids and around the house. He is contemplating options for post-rehab which may include joining [facility] or a local gym. Pt is doing well with progressing CR workloads and tolerating 40+ mins of exercise per session. Home exercise has been inconsistent and mostly just ADLs or playing with his grandkids. As discharge from CR approaches we will continue to discuss options and encourage gym membership or more regularly aerobic exercise at home. Pt is tolerating exercise well in CR but continues to struggle with establishing a home routine of structured intentional exercise. He has considered joining a gym but is not committed to this idea. He appreciates his ability to tolerate ADLs better now and hopes to be able to maintain his current fitness level. Pt has verbalized a good understanding of the benefits of exercise and has voiced seeing a significant improvement in how he's been feeling since starting a regular exercise routine in CR. He is unsure about his plans to continue exercise but feels he can picture himself going onmore intentional walks and potentially joining the gym this fall/winter. Exercise Education Documentation Individualized ExRx, taught by Merlene Weinberg, CCRP, CEP at 09/27/2024 9:24 AM. Learner: Patient Readiness: Acceptance Method: Explanation, Handout Response: Able to Teach Back Nutrition Assessment 06/29/2024 09/27/2024 Picture Your Plate Total Score 53 40 Total Score Interpretation A PYP score of 51-60 indicates a more healthful dietary pattern, with some room for improvement A PYP score below 40 indicates greater likelihood of an unhealthy dietary pattern with much room for improvement 06/27/2024 07/24/2024 08/16/2024 09/18/2024 09/27/2024 Nutrition Assessment ITP Inclusion: Nutrition Assessment Initial Reassessment Reassessment Reassessment Discharge Height 167.6 cm 167.6 cm 167.6 cm 167.6 cm 167.6 cm Weight 116 kg 116 kg 115 kg 116 kg 116 kg BMI 41.26 41.26 41.08 41.44 41.37 Dietary Recommendations Low Salt;Low Fat/ Low Cholesterol Low Salt;Low Fat/ Low Cholesterol Low Salt;Low Fat/ Low Cholesterol Low Salt;Low Fat/ Low Cholesterol Low Salt;Low Fat/ Low Cholesterol Low Salt Amount 2000 mg 2000 mg 2000 mg 2000 mg 2000 mg Caffeine Type Coffee;Soda or Pop Coffee;Soda or Pop Coffee;Soda or Pop Coffee;Soda or Pop Coffee;Soda or Pop Appetite Good Good Good Good Good 06/27/2024 07/25/2024 08/22/2024 09/19/2024 09/27/2024 Plan Goals Increase fruit intake;Increase vegetable intake;Decrease simple sugar intake;Decrease overallportions;Compliance with dietary guidelines;Reduce saturated fat intake;Limit sodium intake Increase fruit intake;Increase vegetable intake;Decrease simple sugar intake;Decrease overall portions;Compl iance with dietary guidelines;Reduce saturated fat intake;Limit sodium intake Increase fruit intake;Increase vegetable intake;Decrease simple sugar intake;Decrease overall portions;Compliance with dietary guidelines;Reduce saturated fat intake;Limit sodium intake Increase fruit intake;Increase veget able intake;Decrease simple sugar intake;Decrease overall portions;Compliance with dietary guidelines;Reduce saturated fat intake;Limit sodium intake Increase fruit intake;Increase vegetable intake;Decrease simple sugar intake;Compliance with dietary guidelines;Reduce saturated fat intake;Limit sodium intake;Continue to make appropriate heart healthy diet choices Nutrition Counseling Staff education only Interventions Discussion on identifying/incorporating diet changes;Home weight monitoring;Discussion on current eating habits;Therapist discussion;Healthy shopping tips/food labels/eating out Discussion on identifying/incorporating diet changes;Home weight monitoring;Discussion on current eating hab its;Therapist discussion;Healthy shopping tips/food labels/eating out Discussion on identifying/incorporating diet changes;Home weight monitoring;Discussion on current eating habits;Therapist discussion;Healthy shopping tips/food labels/eating out Discussion on identifying/incorporating diet changes;Home weight monitoring;Discussion on current eating habits;Therapist discussion;Healthy shopping tips/food labels/eating out Home weight monitoring;Discussion on current eating habits;Therapist discussion;Diet survey review Progress Toward Goals Pt has already started making positive dietary changes. He has a very supportive family who have been helping through these changes and keeping him on track. They have cut down overall sodium intake and he is staying within 2,000mg/day. He has also been limiting his processed foods and rarely eats out. He is trying to snack on fresh fruit and eating more turkey, eggs, and oatmeal. He does admit that he enjoys bread/carbs but is limiting this to 1-2 slices/day. Prior to heart events, he would eat a lot of cold cut sandwiches which he has cut back on. He quit drinking beerover 1 year ago and has cut back on whiskey significantly, maybe a few times over the last year, since he feels it flares up his gout. He is trying to drink more water which does include sugar free sparkling water. 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 He does drink 1-2 cups of coffee in the morning but shared that since his heart procedures he notices the caffeine impacting his sleep quality more now. Pt continues to receive support from family with diet changes. They continue to monitor sodium intake, sat fat, and avoid highly processed foods. Overall pts weight has been stable. He monitors this daily to check for fluid retention. He has not need any additional Lasix since starting CR. He has cut back significantly on soda and has been able to maintain these changes. Pt continues to follow heart healthy eating recommendations. He remains mindful of sodium intake and has not had any significant weight gain or LE edema requiring additionaldiuretics. Pt continues to follow heart healthy recommendations and reports good appetite. He is mindful of sodium content and continues to weigh daily. He has had a few days this past month where weight increased >3# and he took an extra Lasix. Pt continues to strive towards eating heart health. He has a good understanding of what is recommended and monitors his weight closely to address any concerns for fluid retention. He has only needed to use Lasix prn a few times during his time in CR. Nutrition Education Documentation Mediterranean Diet [id number], taught by Merlene Weinberg, CCRP, CEP at 07/25/2024 10:15 AM. Learner: Patient Readiness: Acceptance Method: Explanation, Handout Response: Able to Teach Back Guidelines For Controlling Sodium [id number], taught by Merlene Weinberg, CCRP, CEP at 07/25/2024 10:15AM. Learner: Patient Readiness: Acceptance Method: Explanation, Handout Response: Able to Teach Back Psychosocial Assessment 06/29/2024 09/27/2024 PHQ-9 PHQ-9 Total Score (max 27) 3 2 PHQ-9 Interpretation None to minimal depression None to minimal depression 06/29/2024 09/27/2024 [facility] Total Score 27 16 06/27/2024 07/25/2024 08/22/2024 09/19/2024 09/27/2024 Psychosocial Assessment ITP Inclusion: Psychosocial Initial Initial Reassessment Reassessment Discharge Social Drivers of Health have been reviewed. For high-risk areas identified, a plan of treatment and follow-up information will be documented in appropriate areas within the ITP Yes Yes Yes Yes Yes Current Medication Therapy No No No No No Patient Stress Factors None identified None identified None identified None identified None identified Family Stress Factors None identified None identified None identified None identified None identified Needs Expressed Denies Denies Denies Denies Denies 06/27/2024 07/25/2024 08/22/2024 09/19/2024 09/27/2024 Plan Goals Continue to use effective stress management techniques;Utilize a support system;Return to leisure and social activities Continue to use effective stress management techniques;Utilize a support system;Return to leisure and social activities Continue to use effective stress management techniques;Utilize a support system;Return to leisure and social activities Continue to use effective stress management techniques;Utilize a support system;Return to leisure and social activities Continue to use effective stress management techniques;Utilize a support system;Return to leisure and social activities Interventions Discussed/reviewed current coping skills;Discussed/reviewed support system;Discussed/reviewed depression s/s;Discussed/reviewed anxiety symptoms;Therapist discussion Discussed/reviewed current coping skills;Discussed/reviewed support system;Discussed/reviewed depression s/s;Discussed/reviewed anxiety symptoms;Therapist discussion Discussed/reviewed current coping skills;Discussed/reviewed support system;Discussed/reviewed depression s/s;Discussed/reviewed anxiety symptoms;Therapist discussion Discussed/reviewed current coping skills;Discussed/reviewed support system;Discussed/reviewed depression s/s;Discussed/reviewed anxiety symptoms;Therapist discussion Discussed/reviewed current coping skills;Discussed/reviewed support system;Discussed/reviewed depression s/s;Discussed/reviewed anxiety symptoms;Therapist discussion Progress Toward Goals Pt shared that since his heart procedures he's felt significantly better which has improved his mood as well. He admits that prior to February he was feeling a little depressed/anxious because he couldn't do much without feeling limited by SOB or fatigue. He's now able to keepup with his young grandsons and is thinking he will be able to mow their lawn this summer. He has great support around him which includes his , 2 daughters, 1 son, and grandkids. He is retired from working for the [employer]. His sleep has also improved since the procedures and on average he is getting around 6 hrs/night. Pts mood continues to improve and he's been impressed with his bodies ability to tolerate the exercises in CR. No concerns for anxiety or depression at this time. He's been enjoying time playing with his grandkids and feels he's been able to physically keep up with thembetter now. He is even thinking about setting up a basketball hoop in their driveway again for him and the boys to shoot on. No concerns with mood or symptoms of depression/anxiety. He has been tolerating exercise well and enjoying his time with his grandkids. He is amazed by how much better he feels now compared to pre-intervention. He has good family support at home. Pts mood has shifted withinthe last month and he reports concerns with lack of motivation to attend CR/exercise and just feeling general fatigue. The timeline correlates with recent increasing in HF medications. He will see CHF team on Wednesday this week and was encouraged to report concerns to them. He does not report any concerns with depression or anxiety. On days when he comes to rehab in a down mood he often times reports significant improvement after he's completed his exercise session. He recognizes the benefits exercise can have on his mental health. Will continue to provide support and encouragement. Lack of motivation and fatigue symptoms have improved since last ITP. He reports no concerns for depression/anxiety. He is well supported by his family at home. He continues to attend regular visits with CHF team and continues to be amazed by how much better he feels now vs prior to CR. Data saved with a previous flowsheet row definition Psychosocial Education Documentation Mindfulness: Living in the Moment [id number], taught by Merlene Weinberg CCRP, CEP at 07/25/2024 10:15AM. Learner: Patient Readiness: Acceptance Method: Explanation, Handout Response: Able to Teach Back Other Core Components Hypertension Assessment 06/27/2024 07/24/2024 08/16/2024 09/18/2024 09/27/2024 Hypertension ITP Inclusion: Hypertension Assessment Initial Reassessment Reassessment Reassessment Discharge History of Hypertension Yes Yes Yes Yes Yes Current Medication Therapy Yes Yes Yes Yes Yes Hypertension Medications metoprolol, valsartan metoprolol, valsartan metoprolol, valsartan metoprolol, valsartan metoprolol, valsartan Blood Pressure 108/62 Resting BP (Telemetry) 110/62 124/62 108/60 114/68 06/27/2024 07/25/2024 08/22/2024 09/19/2024 09/27/2024 Plan Goals Stable BP response;BP at physician prescribed goal;Decrease sodium intake;Medication compliance;Continue lifestyle choices for optimal blood pressure changes Stable BP response;BP at physician prescribed goal;Decrease sodium intake;Medication compliance;Continue lifestyle choices for optimal blood pressure changes Stable BP response;BP at physician prescribed goal;Decrease sodium intake;Medication compliance;Continue lifestyle choices for optimal blood pressure changes Stable BP response;BP at physician prescribed goal;Decrease sodium intake;Medication compliance;Continue lifestyle choices for optimal blood pressure changes Stable BP response;BP at physician prescribed goal;Decrease so dium intake;Medication compliance;Continue lifestyle choices for optimal blood pressure changes Interventions Therapist discussion Therapist discussion Therapist discussion Therapist discussion Therapist discussion;Blood pressure medication change Progress Toward Goals Pt does not currently check home BP readings but reports at recent clinic visits since TAVR readings have been on the lower side, 110s/60s. This avg was reflected today in rehabas well. He does not have any noticeable lightheadedness/dizziness with position changes. We will continue to monitor in rehab and reach out to CVD team if needed. Metoprolol and valsartan doses wererecently increased per HF clinic guidelines. Pt is tolerating these changes well. BP has been within normal ranges in CR. No symptoms of LH or dizziness have been reported. HF medications were increased again since last ITP, pt has tolerated this well. Vitals at rehab have been within goal ranges. B P remains within goal range. Pt reports compliance. Metoprolol was increased to 50mg BID per CHF team. Pt reports compliance and has tolerated this change well. Hypertension Education Documentation No documentation found. Hyperlipidemia Assessment 06/27/2024 07/25/2024 08/22/2024 09/19/2024 09/27/2024 Hyperlipidemia Assessment History of Hyperlipidemia Yes Yes Yes Yes Yes Current Medication Therapy Yes Yes Yes Yes Yes Hyperlipidemia Medications Rosuvastatin Rosuvastatin Rosuvastatin Rosuvastatin Rosuvastatin Lipids 11/20/2022 03/20/2024 8:37 AM 4:59 AM CHOL 151 108 TRIG 503 153 HDL 35 38 TTLCHOLHDLRT 4.31 2.84 06/27/2024 07/25/2024 08/22/2024 09/19/2024 09/27/2024 Plan Goals Improve lipids;Lipids in optimal range;Understand current lipid profile;Increase aerobic exercise;Medication compliance Improve lipids;Lipids in optimal range;Understand current lipid profile;Increase aerobic exercise;Medication compliance Improve lipids;Lipids in optimal range;Understand current lipid profile;Increase aerobic exercise;Medication compliance Lipids in optimal range;Medication compliance;Improve lipids Lipids in optimal range;Medication compliance;Improve lipids Interventions Therapist discussion;Review lipid profile;Discussion on hyperlipidemia medications Therapist discussion;Review lipid profile;Discussion on hyperlipidemia medications Therapist discussion;Review lipid profile;Discussion on hyperlipidemia medications Therapist discussion Therapist discussion Progress Toward Goals Reviewed most recent lipid panel which showed values within goal range. TC: 108, T, HDL: 38, LDL: 39. Pt has already started making positive diet changes such as cutting back on processed foods that while help optimize his cholesterol control. Pt continues to take statintherapy as prescribed. He is doing well progressing with exercise and dietary habits. Pt continues to take statin therapy as prescribed. He is doing well progressing with exercise and dietary habits.Pt continues to take statin therapy as prescribed. He is doing well progressing with exercise and dietary habits. Pt continues to take statin therapy as prescribed. He is doing well progressing with exercise and dietary habits. Hyperlipidemia Education Documentation No documentation found. Education Comments No comments found. Diabetes Assessment 06/27/2024 07/25/2024 08/22/2024 09/19/2024 09/27/2024 Diabetes History of Diabetes Pre-Diabetes Pre-Diabetes Pre-Diabetes Pre-Diabetes Pre-Diabetes History of Pre Diabetes Impaired Fasting Glucose (IFG) Impaired Fasting Glucose (IFG) Impaired Fasting Glucose (IFG) Impaired Fasting Glucose (IFG) Impaired Fasting Glucose (IFG) Current Medication Therapy Yes Yes Yes Yes Yes Current Medication Therapy Jardiance Jardiance Jardiance Jardiance Jardiance Do you monitor your blood glucose at home? No No No No No Diabetic Labs No lab values to display. 06/27/2024 07/25/2024 08/22/2024 09/19/2024 09/27/2024 Plan Goals Compliance with diabetic nutritional guidelines Compliance with diabetic nutritional guidelines Compliance with diabetic nutritional guidelines Compliance with diabetic nutritional guidelines Compliance with diabetic nutritional guidelines Interventions Therapist discussion;Discussion on pre-diabetes/metabolic syndrome Therapist discussion;Discussion on pre-diabetes/metabolic syndrome Therapist discussion;Discussion on pre-diabetes/metabolic syndrome Therapist discussion;Discussion on pre-diabetes/metabolic syndrome Therapist discussi on;Discussion on pre-diabetes/metabolic syndrome Progress Toward Goals Pts A1C was slightly elevated, indicating risk of progressing Pre DM to DM2. He is taking Jardiance for HF and BS control. He has already started making positive dietary changesand we discussed focusing on carb intake. He does enjoy white bread so we talked about trying a whole grain option instead. Pt is open to suggestions and will benefit from continued education. Pt is doing well with making healthy lifestyle changes including increasing aerobic exercise and making small dietary changes. Pt is doing well with making healthy lifestyle changes including increasing aerobic exercise and making small dietary changes. Pt is doing well with making healthy lifestyle changes including increasing aerobic exercise and making small dietary changes. Pt is doing well with making healthy lifestyle changes to help prevent progression of DM. Diabetes Education Documentation No documentation found. Tobacco Assessment 06/27/2024 Tobacco Assessment Smoking Status Never - no goals/interventions indicated Comments Pt did share that he currently smokes marijuana 4-5x per day. He feels this helps with pain management and mood stabilizing. He is not currently interested in working on cessation. We will continue to check in about his smoking habits and work towards encouraging a reduction in drug use. Tobacco Use History[1] Tobacco Education Documentation No documentation found. Heart Failure Assessment 06/27/2024 07/25/2024 08/22/2024 09/19/2024 09/27/2024 Heart Failure Assessment History of Heart Failure Yes Yes Yes Yes Yes Heart Failure type Isolated Systolic HF Isolated Systolic HF Isolated Systolic HF Isolated SystolicHF Isolated Systolic HF Current Medication Therapy Yes Yes Yes Yes Yes Heart Failure Medications Jardiance, valsartan, spironolactone, lasix (prn) Jardiance, valsartan, spironolactone, lasix (prn) Jardiance, valsartan, spironolactone, lasix (prn) Jardiance, valsartan, spironolactone, lasix (prn) Jardiance, valsartan, spironolactone, lasix (prn) 06/27/2024 07/25/2024 08/22/2024 09/19/2024 09/27/2024 Plan Goals Continue lifestyle choices for optimal heart failure management;Understand heart failure signs and symptoms;Sodium intake compliance;Daily weights Continue lifestyle choices for optimal heart failure management;Understand heart failure signs and symptoms;Sodium intake compliance;Daily weightsContinue lifestyle choices for optimal heart failure management;Understand heart failure signs and symptoms;Sodium intake compliance;Daily weights Continue lifestyle choices for optimal heart failuremanagement;Understand heart failure signs and symptoms;Sodium intake compliance;Daily weights Continue lifestyle choices for optimal heart failure management;Understand heart failure signs and symptom s;Sodium intake compliance;Daily weights Interventions Therapist discussion;Discussion on signs/symptoms of heart failure Therapist discussion;Discussion on signs/symptoms of heart failure Therapist discussion;Discussion on signs/symptoms of heart failure Therapist discussion;Discussion on signs/symptoms of heart failure Therapist discussi on;Discussion on signs/symptoms of heart failure Progress Toward Goals Pt does not currently have any HF symptoms or concerns. He's been monitoring his weight regularly since getting home and using his Lasix prn depending on weight gain. He has only needed to use Lasix 3x since his TAVR. He reports compliance with all HF medications and is tolerating them well. EF was reduced 20-25%. He will f/u with the [facility] in June. Will continue to monitor in rehab and provide education as needed. Pt met with the [facility] at [place] last week. He was instructed to increase valsartan to 80mg bid and on 08/04 increase metoprolol to 50mg daily. He has not needed any additional Lasix since starting CR. Most recent ECHO showed i mprovement in his LVEF up to 35-40% already. He will have another updated ECHO completed in about 3months once medications have been optimized. He has no current symptoms of CHF and he continues to weigh himself daily at home. HF medications were up titrated again since last ITP. Pt has tolerated this well with no adverse side effects noted. He does not have any current HF symptoms or LE edema. He's not needed to take any Lasix since starting CR. He is doing well monitoring his weight daily. Pt continues to monitor weight regularly at home and has reported a few occasions of needing to take a Lasix d/t weight gain >3# in 1 day. Overall however, he's been doing well and has not had any other HF symptoms. He's tolerating exercise well despite having bouts of lack of motivation. He will see CHF team this week to discuss next medication titration plans. Pt has been stable from a HF perspective. He continues to monitor weight daily and is taking medications as prescribed. He's only used Lasix prn a few times during his 3 months in [place]. Heart Failure Education Documentation No documentation found. Medication Compliance Assessment 06/27/2024 07/25/2024 08/22/2024 09/19/2024 09/27/2024 Medications Have you been compliant with all medications? Yes Yes Yes Yes Yes 06/27/2024 07/25/2024 08/22/2024 09/19/2024 09/27/2024 Plan Goals Medication compliance Medication compliance Medication compliance Medication compliance Medication compliance Interventions Medication review;Therapist discussion Medication review;Therapist discussion Medication review;Therapist discussion Medication review;Therapist discussion Medication review;Therapist discussion Progress Toward Goals Reviewed all current medications. Pt reports compliance. Reviewed all currentmedications. Pt reports compliance. Reviewed all current medications. Pt reports compliance. Reviewed all current medications. Pt reports compliance. Reviewed all current medications. Pt reports compliance. Medication Compliance Education Documentation No documentation found. Medications were reviewed every visit. [1] Social History Tobacco Use Smoking Status Not on file Smokeless Tobacco Not on file documented in this encounter Plan of Treatment Not on file documented as of this encounter Visit Diagnoses Not on filedocumented in this encounter Additional Health Concerns Assessment Noted Time PHQ-9 Depression Total Score: 2 09/28/19 25 12:20 PM CDT documented as of this encounter
--- OUTSIDE RECORDS SUMMARY | 2024-10-04 18:56 | XMS_ITS | Clinical Summary ---
Author Organization [facility] Address [address] [place] [address] Care Team Providers Care Indian Trader Name Role Phone Unavailable Primary Care Provider Unavailabl e Source Comments Patient records contain information from all sites at [facility]. For routine questions regarding patient records, call [phone] during business hours, M-F 8:00 AM - 5:00 PM Central Time. Record requests for emergency care only can be directed to [phone] at any time.[facility] Encounters Date Type Department Care Team Description 10/03/2024 Plan of Care Documentation Department of Cardiac Rehabilitation in [address] [address] 09/27/2024 9:30 AM CDT - 09/27/2024 11:59 PM CDT Hospital Encounter Department of Cardiac Rehabilitation in [address] [address] Leo Clay M.D. Repair Aortic Valve Status Post Discharge Disposition: Home or Self Care 09/20/2024 9:26 AM CDT - 09/20/2024 11:59 PM CDT Hospital Encounter Department of Cardiac Rehabilitation in [address] [address] Leo Clay M.D. Repair Aortic Valve Status Post Discharge Disposition: Home or Self Care 09/19/2024 Plan of Care Documentation Department of Cardiac Rehabilitation in [address] [phone] 09/18/2024 9:30 AM CDT - 09/18/2024 11:59 PM CDT Hospital Encounter Department of Cardiac Rehabilitation in [address] [address] Leo Clay M.D. Repair Aortic Valve Status Post Discharge Disposition: Home or Self Care 09/15/2024 9:26 AM CDT - 09/15/2024 11:59 PM CDT Hospital Encounter Department of Cardiac Rehabilitation in [address] [address] Leo Clay M.D. Repair Aortic Valve Status Post Discharge Disposition: Home or Self Care 09/13/2024 9:29 AM CDT - 09/13/2024 11:59 PM CDT Hospital Encounter Department of Cardiac Rehabilitation in [address] [address] Leo Clay M.D. Repair Aortic Valve Status Post Discharge Disposition: Home or Self Care 09/11/2024 9:27 AM CDT - 09/11/2024 11:59 PM CDT Hospital Encounter Department of Cardiac Rehabilitation in [address] [address] Leo Clay M.D. Repair Aortic Valve Status Post Discharge Disposition: Home or Self Care 09/06/2024 Clinical Communication Department of Cardiac Rehabilitation in [address] [address] Merlene Weinberg, CCRP, CEP Scheduling 09/04/2024 9:28 AM CDT - 09/04/2024 11:59 PM CDT Hospital Encounter Department of Cardiac Rehabilitation in [address] [address] Leo Clay M.D. Repair Aortic Valve Status Post Discharge Disposition: Home or Self Care 09/01/2024 9:29 AM CDT - 09/01/2024 11:59 PM CDT Hospital Encounter Department of Cardiac Rehabilitation in [address] [address] Leo Clay M.D. Repair Aortic Valve Status Post Discharge Disposition: Home or Self Care 08/30/2024 9:28 AM CDT - 08/30/2024 11:59 PM CDT Hospital Encounter Department of Cardiac Rehabilitation in [address] [address] Leo Clay M.D. Repair Aortic Valve Status Post Discharge Disposition: Home or Self Care 08/28/2024 9:28 AM CDT - 08/28/2024 11:59 PM CDT Hospital Encounter Department of Cardiac Rehabilitation in [address] [address] Leo Clay M.D. Repair Aortic Valve Status Post Discharge Disposition: Home or Self Care 08/25/2024 Clinical Communication Department of Cardiac Rehabilitation in [address] [phone] Elva Feldman Scheduling 08/23/2024 9:29 AM CDT - 08/23/2024 11:59 PM CDT Hospital Encounter Department of Cardiac Rehabilitation in [address] [address] Leo Clay M.D. Repair Aortic Valve Status Post Discharge Disposition: Home or Self Care 08/22/2024 Plan of Care Documentation Department of Cardiac Rehabilitation in [address] [address] 08/18/2024 Clinical Communication Department of Cardiac Rehabilitation in [address] [address] Merlene Weinberg, MINGOP, CEP Scheduling 08/16/2024 9:27 AM CDT - 08/16/2024 11:59 PM CDT Hospital Encounter Department of Cardiac Rehabilitation in [address] [address] Leo Clay M.D. Repair Aortic Valve Status Post Discharge Disposition: Home or Self Care 08/09/2024 9:29 AM CDT - 08/09/2024 11:59 PM CDT Hospital Encounter Department of Cardiac Rehabilitation in [address] [address] Leo Clay M.D. Repair Aortic Valve Status Post Discharge Disposition: Home or Self Care 08/07/2024 9:27 AM CDT - 08/07/2024 11:59 PM CDT Hospital Encounter Department of Cardiac Rehabilitation in [address] [address] Leo Clay M.D. Repair Aortic Valve Status Post Discharge Disposition: Home or Self Care 08/04/2024 9:27 AM CDT - 08/04/2024 11:59 PM CDT Hospital Encounter Department of Cardiac Rehabilitation in [address] [phone] Leo Clay M.D. Repair Aortic Valve Status Post Discharge Disposition: Home or Self Care 08/04/2024 Clinical Communication Department of Cardiac Rehabilitation in [address] [address] Merlene Weinberg, CCRP, CEP Scheduling 08/02/2024 9:29 AM CDT - 08/02/2024 11:59 PM CDT Hospital Encounter Department of Cardiac Rehabilitation in [address] [address] Leo Clay M.D. Repair Aortic Valve Status Post Discharge Disposition: Home or Self Care 07/28/2024 9:25 AM CDT - 07/28/2024 11:59 PM CDT Hospital Encounter Department of Cardiac Rehabilitation in [address] [address] Leo Clay M.D. Repair Aortic Valve Status Post Discharge Disposition: Home or Self Care 07/28/2024 Clinical Communication Department of Cardiac Rehabilitation in [address] [address] Merlene Weinberg, CCRP, CEP Scheduling 07/26/2024 9:27 AM CDT - 07/26/2024 11:59 PM CDT Hospital Encounter Department of Cardiac Rehabilitation in [address] [address] Leo Clay M.D. Repair Aortic Valve Status Post Discharge Disposition: Home or Self Care 07/25/2024 Plan of Care Documentation Department of Cardiac Rehabilitation in [address] [address] 07/24/2024 9:27 AM CDT - 07/24/2024 11:59 PM CDT Hospital Encounter Department of Cardiac Rehabilitation in [address] [address] Leo Clay M.D. Repair Aortic Valve Status Post Discharge Disposition: Home or Self Care 07/21/2024 9:26 AM CDT - 07/21/2024 11:59 PM CDT Hospital Encounter Department of Cardiac Rehabilitation in [address] [address] Leo Clay M.D. Repair Aortic Valve Status Post Discharge Disposition: Home or Self Care 07/19/2024 9:30 AM CDT - 07/19/2024 11:59 PM CDT Hospital Encounter Department of Cardiac Rehabilitation in [address] [address] Leo Clay M.D. Repair Aortic Valve Status Post Discharge Disposition: Home or Self Care 07/17/2024 9:29 AM CDT - 07/17/2024 11:59 PM CDT Hospital Encounter Department of Cardiac Rehabilitation in [address] [address] Leo Clay M.D. Repair Aortic Valve Status Post Discharge Disposition: Home or Self Care 07/14/2024 9:30 AM CDT - 07/14/2024 11:59 PM CDT Hospital Encounter Department of Cardiac Rehabilitation in [address] [address] Leo Clay M.D. Repair Aortic Valve Status Post Discharge Disposition: Home or Self Care 07/12/2024 9:30 AM CDT - 07/12/2024 11:59 PM CDT Hospital Encounter Department of Cardiac Rehabilitation in [address] [address] Leo Clay M.D. Repair Aortic Valve Status Post Discharge Disposition: Home or Self Care 07/10/2024 9:28 AM CDT - 07/10/2024 11:59 PM CDT Hospital Encounter Department of Cardiac Rehabilitation in [address] [address] Leo Clay M.D. Repair Aortic Valve Status Post Discharge Disposition: Home or Self Care 07/05/2024 9:30 AM CDT - 07/05/2024 11:59 PM CDT Hospital Encounter Department of Cardiac Rehabilitation in [address] [address] Leo Clay M.D. 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 Gender Identity Not on file Sexual Orientation Not on file Plan of Treatment Health Maintenance Due Date Last Done Comments CT Colonography 1950 Cologuard 1950 FIT 1950 Hepatitis C Screening 1950 Zoster Vaccines (2 of 3) 11/26/2011 10/01/2011 DTaP,Tdap,and Td Vaccines (2 - Td or Tdap) 09/30/2021 10/01/2011, 04/23/2003 Depression Screening (Annual PHQ-2) 03/29/2024 Fall Risk Screen (Annual) 03/29/2024 COVID-19 Vaccine ( season) 2024 12/20/2023, 09/08/2021, 02/07/2021, Additional history exists Influenza Vaccine (#1) 2024 , 01/25/2023, 03/17/2021, Additional history exists Fasting Glucose for Diabetes Screening 07/21/2027 07/20/2024, 07/14/2024, 06/09/2024, Additional history exists Colonoscopy 08/14/2031 08/13/2021 Colorectal Cancer Screening 08/14/2031 Pneumococcal vaccine (50+ years) Completed 12/20/2023, 04/17/2019 IPV Vaccines Aged Out No longer eligi ble based on patient's age to complete this topic Procedures Procedure Name Priority Date/Time Associated Diagnosis Comments 6 MINUTE WALK Routine 09/27/2024 9:30 AM CDT Repair Aortic Valve Status Post from Last 3 Months Results * 6 MINUTE WALK (09/27/2024 9:30 AM CDT) Narrative Merlene Weinberg CCRP, [place] - 09/27/2024 9:30 AM CDT Merlene Weinberg CCRP, [place] 10/03/2024 9:01 AM Six Minute Walk Performed [...] METs: 2.92 % of Predicted Distance: 98.37 Leo Clay M.D. CV STRESS PROCEDURES Final Result from Last 3 Months Insurance [facility] Member Subscriber Plan / Payer (Ef fective 2024-Present) Name:Jerry Newberry II Relation to Subscriber:Self Name:Jerry Newberry II Payer ID:Not on file Group ID:[id number] Type:Indemnity Address: [facility] [address] [place] [address] MEDICARE
--- OUTSIDE RECORDS SUMMARY | 2024-10-04 18:56 | XMS_ITS | Encounter Summary ---
Author Organization [facility] Address [address] [place] [address] Care Team Providers Care Fishing Vessel Mate Name Role Phone Unavailable Primary Care Provider Unavailabl e Reason for Visit * Reason Onset Date Comments Scheduling 08/18/2024 Encounter Details Date Type Department Care Team (Late st Contact Info) Description 08/18/2024 Clinical Communication Department of Cardiac Rehabilitation in [address] [place] [address] Merlene Weinberg[place] CCRP[place] [facility] [place] Social History Tobacco Use Types Packs/Day Years Used Date Smoking Tobacco: Never Assessed Depression Answer Date Recor ded PHQ-9 Total Score (max 27) 3 06/29 Sex and Gender Information Value Date Recorded Sex Assigned at Not on file 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
--- OUTSIDE RECORDS SUMMARY | 2024-10-04 18:56 | XMS_ITS | Encounter Summary ---
Author Organization [facility] Address [address] [place] [address] Care Team Providers Care Pantograph Machine Set Up Operator Name Role Phone Unavailable Primary Care Provider Unavailabl e Reason for Visit * Reason Onset Date Comments Scheduling 07/28/2024 Encounter Details Date Type Department Care Team (Late st Contact Info) Description 07/28/2024 Clinical Communication Department of Cardiac Rehabilitation in [address] [place] [address] Merlene Weinberg[place] CCR[place] [facility] [place] Social History Tobacco Use Types Packs/Day Years Used Date Smoking Tobacco: Never Assessed Depression Answer Date Recor ded PHQ-9 Total Score (max 27) 3 06/29 Sex and Gender Information Value Date Recorded Sex Assigned at Not on file 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
--- OUTSIDE RECORDS SUMMARY | 2024-10-04 18:56 | XMS_ITS | Encounter Summary ---
Author Organization [facility] Address [address] [place] [address] Care Team Providers Care Investor Relations Analyst Name Role Phone Unavailable Primary Care Provider Unavailabl e Encounter Details Date Type Department Care Team (Latest Contact Info) Description 09/19/2024 Plan of Care Documentation Department of Cardiac Rehabilitation in [address] [place] [id number] Social History Tobacco Use Types Packs/Day Years Used Date Smoking Tobacco: Never Assessed Depression Answer Date Recor ded PHQ-9 Total Score (max 27) 3 06/29 Sex and Gender Information Value Date Recorded Sex Assigned at Not on file 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 Mr. Newberry (74 y.o., : 1950, ) was referred to the [facility] Cardiac Rehab Program on 06/20/2024, by Leo Clay M.D. and has completed 25 sessions out of the 36 prescribed. PCP: No primary care provider on file. Demand Inspector: Jethro Marina M.D. Program: Cardiac Rehab Phase II Type: Center-Based Intake Date: 06/27/2024 Date of Enrollment: 06/29/2024 Primary Diagnosis: CATHIE 06/08/2024 Secondary Diagnosis: PCI 03/26/2024 AACVPR Risk: High 06/27/2024 07/25/2024 08/22/2024 09/19/2024 Symptoms ITP Inclusion: Symptoms Initial Reassessment Reassessment Reassessment Synopsis Pt was referred to CR following [...] daily. He has f/u visits at the [facility] in June along with his PCP at the [facility] in [place]. Pt has been attending CR regularly and tolerating exercise well. He's had no cardiac Sx. He had f/u visits with his Cardiology team and the Advanced HF clinic at [place] this month. HF medications were up titrated [...] which will be the week of 09/27. Cardiovascular Symptoms Fatigue;Shortness of Breath None None None Home O2 Use No No No No Ejection Fraction Date 06/08/2024 07/07/2024 Ejection Fraction (EF) % 20 % 20-25% 35 % 35-40% Other Education Documentation Cardiac Rehab Program Overview, taught by Merlene Weinberg, MINGOP, CEP at 06/27/2024 1:05 PM. Learner: Patient Readiness: Acceptance Method: Explanation, Handout Response: Able to Teach Back Exercise Assessment 06/29/2024 DASI Calculations Estimated V02 Peak 16.57 Estimated MET Level 4.73 Six Minute Walk 06/29/2024 Total Distance Walked (Meters) 338.33 Estimated METs 2.61 % of Predicted Distance 83.99 Comments Patient's pain rating is general orthopedic pain, no worsening pain with exercises. 06/27/2024 07/24/2024 08/16/2024 09/18/2024 Exercise Assessment ITP Inclusion: Exercise Assessment Initial Reassessment Reassessment Reassessment Resting HR (Telemetry) 86 92 85 Resting Pulse 87 Pulse Rate Source Pulse oximetry Cardiac Rhythm SR SR SR SR Ectopy PVCs;Triplet PVCs;Couplet PVCs;Unifocal PVCs PVCs;Triplet PVCs;Couplet PVCs;Unifocal PVCs PVCs;Triplet PVCs;Couplet PVCs;Unifocal PVCs Ectopy Frequency Frequent;Bigeminal Frequent;Bigeminal Frequent;Bigeminal Exercise Limitations Yes No No No Limitation Description Spinal stenosis, bilateral rotator cuff tears Action Taken Will monitor pain and adjust ExRx prn Assistive Device None None None None Peak METs 4 4.5 6.7 Aerobic Minutes per Day (Home) 0 minutes 0 minutes 0 minutes 0 minutes Aerobic Days per Week (Home) 0 Days 0 Days 0 Days 0 Days Aerobic Minutes per Day (Rehab) 0 minutes 43 minutes 43 minutes 43 minutes Aerobic Days per Week (Rehab) 0 Days 3 Days 3 Days 3 Days Aerobic Minutes per Week 0 129 129 129 Strength Training Days per Week 0 Days 0 Days 0 Days 0 Days Flexibility Training Days per Week 0 0 0 0 06/27/2024 07/25/2024 08/22/2024 09/19/2024 Exercise Prescription Frequency of Sessions Weekly Weekly Weekly Weekly Sessions per week 3-4 3-4 3-5 3-5 Intensity Work at a level that is comfortable but also challenging Work at a level that is comfortable but also challenging Work at a level that is comfortable but also challenging Work at a level that is comfortable but also challenging Rating of Perceived Exertion range (RPE): 11-14 11-15 11-15 11-15 Warm Up Minutes: 2-3 2-3 2-3 2-3 Aerobic exercise minutes: 20-30 30-45 30-45 30-45 Cool Down minutes: 2-3 2-3 2-3 2-3 Goal Minutes/session 30 30+ 30+ 30+ Goal Minutes/Week 150 150+ 150+ 150+ Rehab Aerobic Exercise Equipment Treadmill;Arm Ergometer;Recumbent stepper (with or without arms);Walking Treadmill;Arm Ergometer;Recumbent stepper (with or without arms) Treadmill;Arm Ergometer;Recumbent stepper (with or without arms) Treadmill;Arm Ergometer;Recumbent stepper (with or without arms) Non-Rehab Aerobic Exercise Equipment Walking Treadmill Treadmill;Walking Treadmill;Walking Progression Use RPE to guide when to [...] groups daily Strength Training Calisthenics Calisthenics Calisthenics Calisthenics Number of strength sessions per week: 2-3 2-3 2-3 2-3 Reps: 10 10-15 10-15 10-15 Sets: 1 1-2 1-2 1-2 Hobbies/Activities Avoid prolonged sitting Avoid prolonged sitting Avoid prolonged sitting Avoid prolonged sitting 06/27/2024 07/25/2024 08/22/2024 09/19/2024 Exercise Plan Goals Compliance to on-site program;Compliance [...] to report;Exercise/activity guidelines;Therapist Discussion Exercise/activity guidelines;Therapist Discussion Progress Toward Goals Pt has not been a recent upper and bottom lacer hand but historically used to participate in organized [...] able to maintain his current fitness level. Exercise Education Documentation No documentation found. Nutrition Assessment 06/29/2024 Picture Your Plate Total Score 53 Total Score Interpretation A PYP score of 51-60 indicates a more healthful dietary pattern, with some room for improvement 06/27/2024 07/24/2024 08/16/2024 09/18/2024 Nutrition Assessment ITP Inclusion: Nutrition Assessment Initial Reassessment Reassessment Reassessment Height 167.6 cm 167.6 cm 167.6 cm 167.6 cm Weight 116 kg 116 kg 115 kg 116 kg BMI 41.26 41.26 41.08 41.44 Dietary Recommendations Low Salt;Low Fat/ Low Cholesterol Low Salt;Low Fat/ Low Cholesterol Low Salt;Low Fat/ Low Cholesterol Low Salt;Low Fat/ Low Cholesterol Low Salt Amount 2000 mg 2000 mg 2000 mg 2000 mg Caffeine Type Coffee;Soda or Pop Coffee;Soda or Pop Coffee;Soda or Pop Coffee;Soda or Pop Appetite Good Good Good Good 06/27/2024 07/25/2024 08/22/2024 09/19/2024 Plan Goals Increase fruit intake;Increase vegetable intake;Decrease [...] dietary guidelines;Reduce saturated fat intake;Limit sodium intake Nutrition Counseling Staff education only Interventions Discussion [...] eating habits;Therapist discussion;Healthy shopping tips/food labels/eating out Progress Toward Goals Pt has already started [...] 2-3 16oz bottles per day 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 He does drink 1-2 cups [...] >3# and he took an extra Lasix. Nutrition Education Documentation Mediterranean Diet [id number], taught by Merlene Weinberg CCRP, CEP at 07/25/2024 10:15 AM. Learner: Patient Readiness: Acceptance Method: Explanation, Handout Response: Able to Teach Back Guidelines For Controlling Sodium [id number], taught by Merlene Weinberg CCRP, CEP at 07/25/2024 10:15AM. Learner: Patient Readiness: Acceptance Method: Explanation, Handout Response: Able to Teach Back Psychosocial Assessment 06/29/2024 PHQ-9 PHQ-9 Total Score (max 27) 3 PHQ-9 Interpretation None to minimal depression 06/29/2024 [facility] Total Score 27 06/27/2024 07/25/2024 08/22/2024 09/19/2024 Psychosocial Assessment ITP Inclusion: Psychosocial Initial Initial Reassessment Reassessment Social Drivers of Health have been reviewed. For high-risk areas identified, a plan of treatment and follow-up information will be documented in appropriate areas within the ITP Yes Yes Yes Yes Current Medication Therapy No No No No Patient Stress Factors None identified None identified None identified None identified Family Stress Factors None identified None identified None identified None identified Needs Expressed Denies Denies Denies Denies 06/27/2024 07/25/2024 08/22/2024 09/19/2024 Plan Goals Continue to use effective stress [...] Will continue to provide support and encouragement. Data saved with a previous flowsheet row definition Psychosocial Education Documentation Mindfulness: Living in the Moment [id number], taught by Merlene Weinbegr CCRP CEP at 07/25/2024 10:15AM. Learner: Patient Readiness: Acceptance Method: Explanation, Handout Response: Able to Teach Back Other Core Components Hypertension Assessment 06/27/2024 07/24/2024 08/16/2024 09/18/2024 Hypertension ITP Inclusion: Hypertension Assessment Initial Reassessment Reassessment Reassessment History of Hypertension Yes Yes Yes Yes Current Medication Therapy Yes Yes Yes Yes Hypertension Medications metoprolol, valsartan metoprolol, valsartan metoprolol, valsartan metoprolol, valsartan Blood Pressure 108/62 Resting BP (Telemetry) 110/62 124/62 108/60 06/27/2024 07/25/2024 08/22/2024 09/19/2024 Plan Goals Stable BP response;BP at physician [...] discussion Therapist discussion Therapist discussion Therapist discussion Progress Toward Goals Pt does not currently [...] remains within goal range. Pt reports compliance. Hypertension Education Documentation No documentation found. Hyperlipidemia Assessment 06/27/2024 07/25/2024 08/22/2024 09/19/2024 Hyperlipidemia Assessment History of Hyperlipidemia Yes Yes Yes Yes Current Medication Therapy Yes Yes Yes Yes Hyperlipidemia Medications Rosuvastatin Rosuvastatin Rosuvastatin Rosuvastatin Lipids 11/20/2022 03/20/2024 8:37 AM 4:59 AM CHOL 151 108 TRIG 503 153 HDL 35 38 TTLCHOLHDLRT 4.31 2.84 06/27/2024 07/25/2024 08/22/2024 09/19/2024 Plan Goals Improve lipids;Lipids in optimal range;Understand current lipid profile;Increase aerobic exercise;Medication compliance Improve lipids;Lipids in optimal range;Understand current lipid profile;Increase aerobic exercise;Medication compliance Improve lipids;Lipids in optimal range;Understand current lipid profile;Increase aerobic exercise;Medication compliance Lipids in optimal range;Medication compliance;Improve lipids Interventions Therapist discussion;Review lipid profile;Discussion on hyperlipidemia medications Therapist discussion;Review lipid profile;Discussion on hyperlipidemia medications Therapist discussion;Review lipid profile;Discussion on hyperlipidemia medications Therapist discussion Progress Toward Goals Reviewed most [...] found. Diabetes Assessment 06/27/2024 07/25/2024 08/22/2024 09/19/2024 Diabetes History of Diabetes Pre-Diabetes Pre-Diabetes Pre-Diabetes Pre-Diabetes History of Pre Diabetes Impaired Fasting Glucose (IFG) Impaired Fasting Glucose (IFG) Impaired Fasting Glucose (IFG) Impaired Fasting Glucose (IFG) Current Medication Therapy Yes Yes Yes Yes Current Medication Therapy Jardiance Jardiance Jardiance Jardiance Do you monitor your blood glucose at home? No No No No Diabetic Labs No lab values to display. 06/27/2024 07/25/2024 08/22/2024 09/19/2024 Plan Goals Compliance with diabetic nutritional guidelines Compliance with diabetic nutritional guidelines Compliance with diabetic nutritional guidelines Compliance with diabetic nutritional guidelines Interventions Therapist discussion;Discussion on pre-diabetes/metabolic syndrome Therapist discussion;Discussion on pre-diabetes/metabolic syndrome Therapist discussion;Discussion on pre-diabetes/metabolic syndrome Therapist discussion;Discussion on pre-diabetes/metabolic syndrome Progress Toward Goals Pts [...] aerobic exercise and making small dietary changes. Diabetes Education Documentation No documentation found. Tobacco [...] Heart Failure Assessment 06/27/2024 07/25/2024 08/22/2024 09/19/2024 Heart Failure Assessment History of Heart Failure Yes Yes Yes Yes Heart Failure type Isolated Systolic HF Isolated Systolic HF Isolated Systolic HF Isolated SystolicHF Current Medication Therapy Yes Yes Yes Yes Heart Failure Medications Jardiance, valsartan, spironolactone, lasix (prn) Jardiance, valsartan, spironolactone, lasix (prn) Jardiance, valsartan, spironolactone, lasix (prn) Jardiance, valsartan, spironolactone, lasix (prn) 06/27/2024 07/25/2024 08/22/2024 09/19/2024 Plan Goals Continue lifestyle choices for optimal [...] failure signs and symptoms;Sodium intake compliance;Daily weights Interventions Therapist discussion;Discussion on signs/symptoms of heart failure Therapist discussion;Discussion on signs/symptoms of heart failure Therapist discussion;Discussion on signs/symptoms of heart failure Therapist discussion;Discussion on signs/symptoms of heart failure Progress Toward [...] reduced 20-25%. He will f/u with the [facility] in June. Will continue to monitor in rehab and provide education as needed. Pt met with the [facility] clinic at [place] last week. He was instructed to increase [...] week to discuss next medication titration plans. Heart Failure Education Documentation No documentation found. Medication Compliance Assessment 06/27/2024 07/25/2024 08/22/2024 09/19/2024 Medications Have you been compliant with all medications? Yes Yes Yes Yes 06/27/2024 07/25/2024 08/22/2024 09/19/2024 Plan Goals Medication compliance Medication compliance Medication [...]
--- OUTSIDE RECORDS SUMMARY | 2024-10-04 18:56 | XMS_ITS | Encounter Summary ---
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 Name Role Phone Unavailable Primary Care Provider Unavailabl e Reason for Visit * Reason Onset Date Comments Scheduling 08/04/2024 Encounter Details Date Type Department Care Team (Late st Contact Info) Description 08/04/2024 Clinical Communication Department of Cardiac Rehabilitation in [address] [place] [id number] Merlene Weinberg, CCRP, [facility] [place] Scheduling Social History Tobacco Use Types Packs/Day Years Used Date Smoking Tobacco: Never Assessed Depression Answer Date Recor ded PHQ-9 Total Score (max 27) 3 06/29 Sex and Gender Information Value Date Recorded Sex Assigned at Not on file 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
--- OUTSIDE RECORDS SUMMARY | 2024-10-04 18:56 | XMS_ITS | Encounter Summary ---
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 Name Role Phone Unavailable Primary Care Provider Unavailabl e Encounter Details Date Type Department Care Team (Latest Contact Info) Description 08/22/2024 Plan of Care Documentation Department of Cardiac Rehabilitation in [address] [place] [id number] Social History Tobacco Use Types Packs/Day Years Used Date Smoking Tobacco: Never Assessed Depression Answer Date Recor ded PHQ-9 Total Score (max 27) 3 06/29 Sex and Gender Information Value Date Recorded Sex Assigned at Not on file 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 Mr. Newberry (74 y.o., : 1950, ) was referred to the [facility] Cardiac Rehab Program on 06/20/2024, by Leo Clay M.D. and has completed 16 sessions out of the 36 prescribed. PCP: No primary care provider on file. Deputy Insurance Commissioner: Jethro Marina M.D. Program: Cardiac Rehab Phase II Type: Center-Based Intake Date: 06/27/2024 Date of Enrollment: 06/29/2024 Primary Diagnosis: CATHIE 06/08/2024 Secondary Diagnosis: PCI 03/26/2024 AACVPR Risk: High 06/27/2024 07/25/2024 08/22/2024 Symptoms ITP Inclusion: Symptoms Initial Reassessment Reassessment Synopsis Pt was referred to [...] daily. He has f/u visits at the [facility] in June along with his PCP at the [facility] in [place]. Pt has been attending CR regularly and tolerating exercise well. He's had no cardiac Sx. He had f/u visits with his Cardiology team and the [facility] clinic at [place] this month. HF medications were up titrated [...] well with no new symptoms or concerns. Cardiovascular Symptoms Fatigue;Shortness of Breath None None Home O2 Use No No No Ejection Fraction Date 06/08/2024 07/07/2024 Ejection Fraction (EF) % 20 % 20-25% 35 % 35-40% Other Education Documentation Cardiac Rehab Program Overview, taught by Merlene Weinberg, CCRP, CEP at 06/27/2024 1:05 PM. Learner: [...] worsening pain with exercises. 06/27/2024 07/24/2024 08/16/2024 Exercise Assessment ITP Inclusion: Exercise Assessment Initial Reassessment Reassessment Resting HR (Telemetry) 86 92 Resting Pulse 87 Pulse Rate Source Pulse oximetry Cardiac Rhythm SR SR SR Ectopy PVCs;Triplet PVCs;Couplet PVCs;Unifocal PVCs PVCs;Triplet PVCs;Couplet PVCs;Unifocal PVCs Ectopy Frequency Frequent;Bigeminal Frequent;Bigeminal Exercise Limitations Yes No No Limitation Description Spinal stenosis, bilateral rotator cuff tears Action Taken Will monitor pain and adjust ExRx prn Assistive Device None None None Peak METs 4 4.5 Aerobic Minutes per Day (Home) 0 minutes 0 minutes 0 minutes Aerobic Days per Week (Home) 0 Days 0 Days 0 Days Aerobic Minutes per Day (Rehab) 0 minutes 43 minutes 43 minutes Aerobic Days per Week (Rehab) 0 Days 3 Days 3 Days Aerobic Minutes per Week 0 129 129 Strength Training Days per Week 0 Days 0 Days 0 Days Flexibility Training Days per Week 0 0 0 06/27/2024 07/25/2024 08/22/2024 Exercise Prescription Frequency of Sessions Weekly Weekly Weekly Sessions per week 3-4 3-4 3-5 Intensity Work at a level that is comfortable but also challenging Work at a level that is comfortable but also challenging Work at a level that is comfortable but also challenging Rating of Perceived Exertion range (RPE): 11-14 11-15 11-15 Warm Up Minutes: 2-3 2-3 2-3 Aerobic exercise minutes: 20-30 30-45 30-45 Cool Down minutes: 2-3 2-3 2-3 Goal Minutes/session 30 30+ 30+ Goal Minutes/Week 150 150+ 150+ Rehab Aerobic Exercise Equipment Treadmill;Arm Ergometer;Recumbent stepper (with or without arms);Walking Treadmill;Arm Ergometer;Recumbent stepper (with or without arms) Treadmill;Arm Ergometer;Recumbent stepper (with or without arms) Non-Rehab Aerobic Exercise Equipment Walking Treadmill Treadmill;Walking Progression Use RPE to guide when [...] muscle groups daily Stretchmajor muscle groups daily Strength Training Toribioisttawanna [place] Number of strength sessions per week: 2-3 2-3 2-3 Reps: 10 10-15 10-15 Sets: 1 1-2 1-2 Hobbies/Activities Avoid prolonged sitting Avoid prolonged sitting Avoid prolonged sitting 06/27/2024 07/25/2024 08/22/2024 Exercise Plan Goals Compliance to on-site program;Compliance to home program;Improve exercise tolerance;Increase exercise duration;Increase exercise intensity;Increase frequency of exercise;Establish independent exercise routine Compliance to on- site program;Compliance to home program;Improve exercise tolerance;Increase exercise duration;Increase exercise intensity;Increase frequency of exercise;Establish independent exercise routine Compliance to on-site program;Compliance to home program;Improve exercise tolerance;Increase exercise duration;Increase exercise intensity;Increase frequency of exercise;Establish independent exercise routine Interventions Facility orientation;Equipment instruction;Review of signs/symptoms to report;Exercise/activity guidelines;Therapist Discussion Facility orientation;Equipment instruction;Review of signs/symptoms to report;Exercise/activity guidelines;Therapist Discussion Review of signs/symptoms to report;Exercise/activity guidelines;Therapist Discussion Progress Toward Goals 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 Exercise Education Documentation No documentation found. Nutrition Assessment 06/29/2024 Picture Your Plate Total Score 53 Total Score Interpretation A PYP score of 51-60 indicates a more healthful dietary pattern, with some room for improvement 06/27/2024 07/24/2024 08/16/2024 Nutrition Assessment ITP Inclusion: Nutrition Assessment Initial Reassessment Reassessment Height 167.6 cm 167.6 cm 167.6 cm Weight 116 kg 116 kg 115 kg BMI 41.26 41.26 41.08 Dietary Recommendations Low Salt;Low Fat/ Low Cholesterol Low Salt;Low Fat/ Low Cholesterol Low Salt;Low Fat/ Low Cholesterol Low Salt Amount 2000 mg 2000 mg 2000 mg Caffeine Type Coffee;Soda or Pop Coffee;Soda or Pop Coffee;Soda or Pop Appetite Good Good Good 06/27/2024 07/25/2024 08/22/2024 Plan Goals Increase fruit intake;Increase vegetable intake;Decrease simple sugar intake;Decrease overallportions;Compliance with dietary guidelines;Reduce saturated fat intake;Limit sodium intake Increase fruit intake;Increase vegetable intake;Decrease simple sugar intake;Decrease overall portions;Compl iance with dietary guidelines;Reduce saturated fat intake;Limit sodium intake Increase fruit intake;Increase vegetable intake;Decrease simple sugar intake;Decrease overall portions;Compliance with dietary guidelines;Reduce saturated fat intake;Limit sodium intake Interventions Discussion on identifying/incorporating diet changes;Home weight [...] 2-3 16oz bottles per day 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 He does drink 1-2 cups [...] weight gain or LE edema requiring additionaldiuretics. Nutrition Education Documentation Mediterranean Diet [id number], taught by Merlene Weinberg CCRP, CEP at 07/25/2024 10:15 AM. Learner: Patient Readiness: Acceptance Method: Explanation, Handout Response: Able to Teach Back Guidelines For Controlling Sodium [id number], taught by Merlene Weinberg CCRP, CEP at 07/25/2024 10:15AM. Learner: Patient Readiness: Acceptance Method: Explanation, Handout Response: Able to Teach Back Psychosocial Assessment 06/29/2024 PHQ-9 PHQ-9 Total Score (max 27) 3 PHQ-9 Interpretation None to minimal depression 06/29/2024 [facility] Total Score 27 06/27/2024 07/25/2024 08/22/2024 Psychosocial Assessment ITP Inclusion: Psychosocial Initial Initial Reassessment Social Drivers of Health have been reviewed. For high-risk areas identified, a plan of treatment and follow-up information will be documented in appropriate areas within the ITP Yes Yes Yes Current Medication Therapy No No No Patient Stress Factors None identified None identified None identified Family Stress Factors None identified None identified None identified Needs Expressed Denies Denies Denies 06/27/2024 07/25/2024 08/22/2024 Plan Goals Continue to use effective stress [...] He has good family support at home. Psychosocial Education Documentation Mindfulness: Living in the Moment [id number], taught by Merlene Weinberg CCRP, CEP at 07/25/2024 10:15AM. Learner: Patient Readiness: Acceptance Method: Explanation, Handout Response: Able to Teach Back Other Core Components Hypertension Assessment 06/27/2024 07/24/2024 08/16/2024 Hypertension ITP Inclusion: Hypertension Assessment Initial Reassessment Reassessment History of Hypertension Yes Yes Yes Current Medication Therapy Yes Yes Yes Hypertension Medications metoprolol, valsartan metoprolol, valsartan metoprolol, valsartan Blood Pressure 108/62 Resting BP (Telemetry) 110/62 124/62 06/27/2024 07/25/2024 08/22/2024 Plan Goals Stable BP response;BP at physician prescribed goal;Decrease sodium intake;Medication compliance;Continue lifestyle choices for optimal blood pressure changes Stable BP response;BP at physician prescribed goal;Decrease sodium intake;Medication compliance;Continue lifestyle choices for optimal blood pressure changes Stable BP response;BP at physician prescribed goal;Decrease sodium intake;Medication compliance;Continue lifestyle choices for optimal blood pressure changes Interventions Therapist discussion Therapist discussion Therapist discussion Progress [...] at rehab have been within goal ranges. Hypertension Education Documentation No documentation found. Hyperlipidemia Assessment 06/27/2024 07/25/2024 08/22/2024 Hyperlipidemia Assessment History of Hyperlipidemia Yes Yes Yes Current Medication Therapy Yes Yes Yes Hyperlipidemia Medications Rosuvastatin Rosuvastatin Rosuvastatin Lipids 11/20/2022 03/20/2024 8:37 AM 4:59 AM CHOL 151 108 TRIG 503 153 HDL 35 38 TTLCHOLHDLRT 4.31 2.84 06/27/2024 07/25/2024 08/22/2024 Plan Goals Improve lipids;Lipids in optimal range;Understand current lipid profile;Increase aerobic exercise;Medication compliance Improve lipids;Lipids in optimal range;Understand current lipid profile;Increase aerobic exercise;Medication compliance Improve lipids;Lipids in optimal range;Understand current lipid profile;Increase aerobic exercise;Medication compliance Interventions Therapist discussion;Review lipid profile;Discussion on hyperlipidemia medications Therapist discussion;Review lipid profile;Discussion on hyperlipidemia medications Therapist discussion;Review lipid profile;Discussion on hyperlipidemia medications Progress Toward Goals Reviewed most recent lipid [...] comments found. Diabetes Assessment 06/27/2024 07/25/2024 08/22/2024 Diabetes History of Diabetes Pre-Diabetes Pre-Diabetes Pre-Diabetes History of Pre Diabetes Impaired Fasting Glucose (IFG) Impaired Fasting Glucose (IFG) Impaired Fasting Glucose (IFG) Current Medication Therapy Yes Yes Yes Current Medication Therapy Jardiance Jardiance Jardiance Do you monitor your blood glucose at home? No No No Diabetic Labs No lab values to display. 06/27/2024 07/25/2024 08/22/2024 Plan Goals Compliance with diabetic nutritional guidelines [...] found. 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 He will f/u with the [facility] in June. Will continue to monitor in rehab and provide education as needed. Pt met with the [facility] clinic at [place] last week. He was instructed to increase [...] is doing well monitoring his weight daily. Heart Failure Education Documentation No documentation found. Medication Compliance Assessment 06/27/2024 07/25/2024 08/22/2024 Medications Have you been compliant with all medications? Yes Yes Yes 06/27/2024 07/25/2024 08/22/2024 Plan Goals Medication compliance Medication compliance Medication compliance Interventions [...]
[2024-10-04 19:03] VITALS: BP 157/80; PULSE 78; RESP 32; TEMP 36.9; O2SAT 96; BMI 40.7
--- NOTE | 2024-10-04 19:36 | CRLHL7_ITS ---
For Patients: As a result of the Cures Act, medical imaging exams and procedure reports are released immediately into your electronic medical record. You may view this report before your referring provider. If you have questions, please contact your health care provider. INDICATION: Cough, chills TECHNIQUE: Chest radiograph 2 views COMPARISON: 03/19/2024 FINDINGS: The sensitivity and specificity of the exam are moderately limited by the patient`s body habitus. Mediastinum: The mediastinum is normal in appearance. The heart silhouette is normal in size and morphology. The patient is status post TAVR with a Sapiens device. Lung: Both lungs are unremarkable in appearance with small lung volumes. No sign of pleural effusion seen. No pneumothorax is identified. Bone and Soft tissue: Widening of the AC joints are noted bilaterally, likely due to bilateral surgical resection of the distal clavicles. IMPRESSION: 1. No acute cardiopulmonary disease is seen. Dictated by Mauricio Carey MD @ 10/04/2024 7:50:26 PM Dictated by: Mauricio Carey MD @ 10/04/2024 19:50:30 (Electronically Signed)
--- NOTE | 2024-10-04 19:36 | ED.GENADULT ---
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 Patient notes the onset of a cough on WednesdaySeptember 30 in association with low-grade fever at 99. He has had a runny nose but no significant sore throat and no significant difficulty breathing. Daughter has had weeks of a cough that has not been improving on steroids or antibiotics. Jerry does not have a history of emphysema or tobacco use. He does use marijuana. He has had no chest pain with this. No lower extremity edema. Did experience an episode of chills last evening. Related Data Home Medications ?Medication ?Instructions ?Recorded ?Confirmed allopurinol 100 mg tablet mg PO BID 10/04/24 aspirin 81 mg tablet,delayed 81 mg PO DAILY 10/04/24 10/04/24 release clopidogrel 75 mg tablet 75 mg PO DAILY 10/04/24 10/04/24 empagliflozin 10 mg tablet 10 mg PO DAILY 10/04/24 10/04/24 (Jardiance) furosemide 20 mg tablet 20 mg PO DAILY 10/04/24 10/04/24 lisinopril 20 mg tablet 20 mg PO DAILY 10/04/24 10/04/24 metoprolol succinate 25 mg PO 10/04/24 tablet,extended release 24 hr metoprolol succinate 50 mg mg PO 10/04/24 tablet,extended release 24 hr rosuvastatin 20 mg tablet 20 mg PO QPM 10/04/24 10/04/24 rosuvastatin 5 mg tablet 5 mg PO DAILY 10/04/24 10/04/24 spironolactone 25 mg tablet PO 10/04/24 valsartan 160 mg tablet mg PO 10/04/24 valsartan 40 mg tablet mg PO 10/04/24 valsartan 80 mg tablet mg PO 10/04/24 Previous Rx's ?Medication ?Instructions ?Recorded nebulizers #1 ea 10/04/24 Allergies Allergy/AdvReac Type Severity Reaction Status Date / Time No Known Drug Allergies Allergy Verified 10/04/24 18:59 Review of Systems Status of ROS: Reports: 10 or more systems reviewed and unremarkable except as noted in History and below Const: Reports: fever and chills ENMT: Reports: throat pain (My), hoarseness, nasal discharge and nasal congestion; Denies: neck pain, throat swelling or difficulty swallowing Cardio: Denies: chest pain or swelling of feet/ankles Resp: Reports: cough and wheezing GI: Denies: abdominal pain, nausea, vomiting or difficulty swallowing Musculo: Denies: neck pain or extremity swelling Allergy/Immuno: Reports: wheezing; Denies: throat swelling PFSH PFSH Social History Smoking Status: Current every day smoker Do you use any of these nicotine containing products: None Second hand tobacco smoke exposure: Yes How often do you have a drink containing alcohol: never How often do you have six or more drinks on one occasion: Never AUDIT-C Alcohol total score: 0 Non-prescribed substance use: marijuana (any form) Non-prescribed substance use details: smokes daily service: No Exam Narrative: Exam Narrative: Patient is alert and oriented. Very pleasant gentleman. Slightly hoarse voice. No acute distress. Eyes are clear oral cavity moist mucous membranes. No erythema. Neck is supple without lymphadenopathy. Heart with a regular rate and rhythm. Lungs show bilateral inspiratory rhonchi. Abdomen is obese soft nontender and lower extremities without edema. Const: Vital Signs, click to edit/add: Vital Signs - 24 hr 10/04/24 19:03 Temperature 98.4 F Pulse Rate [Pulse Oximeter] 78 Respiratory Rate 32 H Blood Pressure [Ri ght Upper Arm] 157/80 H Pulse Oximetry 96 Oxygen Delivery Me thod Room Air Documenting provider has reviewed patient's vital signs: yes Course Course ED Course: Differential diagnosis includes but is not limited to URI, pneumonia, bronchitis. At this time patient is not experiencing any chest pain, lower extremity edema to indicate PE DVT. Of course will consider COVID influenza RSV and a swab has already been done by our nurses. Would add chest x-ray and a trial of albuterol nebulizer to see if this improves. Reevaluation(s) Reevaluation #1: Patient does not think he is improved after the nebulizer but re-examination of his chest shows resolution of all the rhonchi. Upon further reflection he notes that his voice is much more clear and he is feeling better. Vital Signs Vital signs: Initial Vital Signs Temperature 98.4 F 10/04/24 19:03 Temperature Source Oral 10/04/24 19:03 Pulse Rate 78 10/04/24 19:03 Respiratory Rate 32 H 10/04/24 19:03 Blood Pressure 157/80 H 10/04/24 19:03 Blood Pressure Mean 105 10/04/24 19:03 Pulse Oximetry 96 10/04/24 19:03 Oxygen Delivery Method Room Air 10/04/24 19:03 Vital Signs Temperature 98.4 F 10/04/24 19:03 Pulse Rate 78 10/04/24 19:03 Respiratory Rate 32 H 10/04/24 19:03 Blood Pressure 157/80 H 10/04/24 19:03 Pulse Oximetry 96 10/04/24 19:03 Oxygen Delivery Method Room Air 10/04/24 19:03 Temperature 98.4 F 10/04/24 19:03 Pulse Rate 78 10/04/24 19:03 Respiratory Rate 32 H 10/04/24 19:03 Blood Pressure 157/80 H 10/04/24 19:03 Pulse Oximetry 96 10/04/24 19:03 Oxygen Delivery Method Room Air 10/04/24 19:03 Medications Administered Medications: Discontinued Medications Generic Name Dose Route Start Last Admin Trade Name Freq PRN Reason Stop Dose Admin Albuterol 2.5 mg 10/04/24 19:36 10/04/24 19:53 Albuterol Sulfate 2.5 Mg/3 Ml Vial.Hermila NEB 10/04/24 19:37 2.5 mg ONCE ONE Administration Medical Decision Making [facility] Narrative Medical decision making narrative: 1. Respiratory viral infection-patient noted to have runny nose, mild sore throat and a cough. Chest x-ray reassuring without evidence of infiltrate. Patient is afebrile here in the ED and does not really describe high fevers. Furthermore he has reassuring oxygen levels. At this time would recommend against antibiotic. But would suggest trial of low-dose steroids prednisone 20 mg daily x5 days. Would also recommend albuterol nebulizer at home as needed. Q 4 hours while awake p.r.n.. Finally have discussed with him the importance of returning for elevated fever, initial improvement of his symptoms which should occur over the next 3-4 days and then sudden worsening, vomiting or difficulty with breathing. He does agree to that. 2. Disposition-home at this time. Return for worsening symptoms and as needed. Medical Records Medical records reviewed: Yes I reviewed the patient's medical records Lab Data Lab results reviewed: Yes I reviewed the patient's lab results Labs: Lab Results 10/04/24 Range/Units 19:00 SARS-CoV-2 (PCR) Negative SARS-CoV-2 (Negative) Influenza Type A (PCR) Negative PCR FLU A (Negative) Influenza Type B (PCR) Negative PCR FLU B (Negative) RSV (PCR) Negative PCR RSV (Negative) Imaging Data Chest x-ray: Attestation: I have reviewed the pertinent imaging results. My impression: I do not note any obvious infiltrates. Radiologist's impression: FINDINGS: The sensitivity and specificity of the exam are moderately limited by the patient`s body habitus. Mediastinum: The mediastinum is normal in appearance. The heart silhouette is normal in size and morphology. The patient is status post TAVR with a Sapiens device. Lung: Both lungs are unremarkable in appearance with small lung volumes. No sign of pleural effusion seen. No pneumothorax is identified. Bone and Soft tissue: Widening of the AC joints are noted bilaterally, likely due to bilateral surgical resection of the distal clavicles. IMPRESSION: 1. No acute cardiopulmonary disease is seen. Discharge Plan Discharge Clinical Impression: Upper respiratory infection, viral Patient Disposition: Home, Self-Care Condition: Improved Additional Instructions: Nebulizer every 4 hours as needed while awake. Nebulizer sent to pharmacy and albuterol sent to our [facility] Steroids as needed to help with inflammation.,-instant meds Return to the emergency room for fever, worsening symptoms and as needed. Prescriptions: New (DME) nebulizers Misc See Rx Instructions .Route Qty: 1 0RF Rx Instructions: As directed No Action metoprolol succinate 50 mg tablet extended release 24 hr PO lisinopril 20 mg tablet 20 mg PO DAILY valsartan 80 mg tablet PO clopidogrel 75 mg tablet 75 mg PO DAILY allopurinol 100 mg tablet PO BID aspirin 81 mg tablet,delayed release (DR/EC) 81 mg PO DAILY spironolactone 25 mg tablet PO furosemide 20 mg tablet 20 mg PO DAILY metoprolol succinate 25 mg tablet extended release 24 hr PO valsartan 160 mg tablet PO valsartan 40 mg tablet PO rosuvastatin 5 mg tablet 5 mg PO DAILY rosuvastatin 20 mg tablet 20 mg PO QPM Jardiance 10 mg tablet 10 mg PO DAILY Follow Up/Referrals: Joey Jackson MD [Primary Care Provider, Family Practice] Stand Alone Forms: [facility] Info Instructions
[2024-10-04] MEDS: ALBUTEROL SULFATE 2.5 MG/3 ML VIAL.NEB NEB (19:53)
[2024-10-04 19:55] LABS: PCR FLU A Negative PCR FLU A (Negative); PCR FLU B Negative PCR FLU B (Negative); PCR RSV Negative PCR RSV (Negative); SARS PCR* Negative SARS-CoV-2 (Negative)
== END 2024-10-04 20:37 | disposition home or self-care (01) ==
PROVIDERS: Emergency Provider Family Medicine; PCP Surgery
DX: R10.9 Unspecified abdominal pain (principal)
CPT/HCPCS: 71046; 87631; 94640; 99283; 99284

== ENCOUNTER 2024-12-29 07:36 | Outpatient (CLI) | payer MEDICARE, BC, SELFPAY ==
--- NOTE | 2024-12-29 08:46 | P.ANES_ITS ---
Anesthesia Charges Start Date/Time Anesthesia Start Date: 12/29/24 Anesthesia Start Time: 08:25 Stop Date/Time Anesthesia Stop Date: 12/29/24 Anesthesia Stop Time: 08:44 Summary Extremes of Age - Over 70 or under 1: RADIOGRAPHER MAMMOGRAPHER Coding CPT Codes CPT Codes: ANES LWR INTST NDSC NOS - 44424 ([id number]) P3 - PATIENT W/SEVERE SYS DISEASE, QK - ZONING ENGINEER 2-4 CNCRNT ANES PROC, QX - RADIOGRAPHER MAMMOGRAPHER SVC W/ MD MED DIRECTION Additional Codes: Summary - Extremes of Age - Over 70 or under 1: RADIOGRAPHER MAMMOGRAPHER ([id number])
--- NOTE | 2024-12-29 08:46 | W.ANESCHARGE ---
Anesthesia Charges Start Date/Time Anesthesia Start Date: 12/29/24 Anesthesia Start Time: 08:25 Stop Date/Time Anesthesia Stop Date: 12/29/24 Anesthesia Stop Time: 08:44 Summary Extremes of Age - Over 70 or under 1: SHANK MAKER Coding CPT Codes CPT Codes: ANES LWR INTST NDSC NOS - 15217 ([id number]) P3 - PATIENT W/SEVERE SYS DISEASE, QK - INSURANCE FOLLOW UP SPECIALIST 2-4 CNCRNT ANES PROC, QX - SHANK MAKER SVC W/ MD MED DIRECTION Additional Codes: Summary - Extremes of Age - Over 70 or under 1: SHANK MAKER ([id number])
--- NOTE | 2024-12-29 10:11 | P.ANES_ITS ---
Anesthesia Charges Start Date/Time Anesthesia Start Date: 12/29/24 Anesthesia Start Time: 08:25 Stop Date/Time Anesthesia Stop Date: 12/29/24 Anesthesia Stop Time: 08:44 Summary Extremes of Age - Over 70 or under 1: MDA Coding CPT Codes CPT Codes: ANES LWR INTST NDSC NOS - 09003 ([id number]) QK - CRANE MECHANIC 2-4 CNCRNT ANES PROC, QX - GLASS FORMING ENGINEER SVC W/ MD MED DIRECTION, P3 - PATIENT W/SEVERE SYS DISEASE Additional Codes: Summary - Extremes of Age - Over 70 or under 1: MDA ([id number])
== END 2024-12-29 07:37 | disposition home or self-care (01) ==
LOC: OP CLINIC 07:39
PROVIDERS: PCP Surgery; Visit Provider Internal Medicine Gastroenterology
DX: Z12.11 Encounter for screening for malignant neoplasm of colon (principal); Z86.0101 Personal history of adenomatous and serrated colon polyps; D12.0 Benign neoplasm of cecum; K57.30 Diverticulosis of large intestine without perforation or abscess without bleeding
CPT/HCPCS: 00811; 45385; 99100; J2704